=== PATIENT | male | born 1995 | race African-American/Black ===

== ENCOUNTER 2020-12-25 22:53 | Emergency (ER) | payer MEDICAID ==
[~2020-12-25] VITALS: Ht 177.8 cm; Wt 73.0 kg
[~2020-12-25 22:53] MED LIST: ASPI-1497 MT; KEPP500 MT; ONDA4TAB5 PO; TOPUD PO
[2020-12-26] MEDS ORDERED: IOHEXOL-350 100 ML BOTTLE ONE (00:43)
[2020-12-26 00:46] LABS: BASOPHILS % 0.3 % (0.0-2.0); EOSINOPHILS % 3.7 % (0.0-5.0); HEMATOCRIT. 32.1 % (42.0-52.0); HEMOGLOBIN. 10.4 g/dL (14.0-18.0); LYMPHOCYTES % 9.5 % (20.0-50.0); MEAN CORPUSCULAR VOLUME 80.1 fL (80.0-94.0); MEAN PLATELET VOLUME 7.4 fl (7.4-10.4); NEUTROPHILS % 81.5 % (40.0-76.0); PLATELET 209 x1000/uL (130-400)
[2020-12-26 00:49] LABS: CHLORIDE 111 mEq/L (98-107)
[2020-12-26 01:15] VITALS: BP 140/92
[2020-12-26 01:38] LABS: PARTIAL THROMBOPLASTIN TIME 29.9 sec (23.4-31.0); PROTHROMBIN TIME 10.6 sec (9.6-11.0)
[2021-01-22] MEDS ORDERED: HYDR-4001 MT (13:36)
[2021-01-22] MEDS ORDERED: KEPP500 MT (13:36)
== END 2020-12-26 02:12 | disposition home or self-care (01) ==
LOC: ER 22:53
DX: R91.1 Solitary pulmonary nodule (principal); Z85.118 Personal history of other malignant neoplasm of bronchus and lung; Z86.59 Personal history of other mental and behavioral disorders
CPT/HCPCS: 36415; 71045; 71275; 80053; 83880; 84484; 85025; 85610; 85730; 93005; 99285; Q9967

== ENCOUNTER 2021-01-12 11:35 | Inpatient (IN) | payer MEDICAID ==
[~2021-01-12] VITALS: Ht 175.3 cm; Wt 74.9 kg
[2021-01-12] MEDS ORDERED: MORPHINE SULFATE 4 MG/ML CPJ (NOT FOR IM USE) IV STA (12:12)
[2021-01-12 12:45] LABS: BASOPHILS % 0.7 % (0.0-2.0); EOSINOPHILS % 1.7 % (0.0-5.0); HEMATOCRIT. 38.7 % (42.0-52.0); HEMOGLOBIN. 12.6 g/dL (14.0-18.0); LYMPHOCYTES % 11.4 % (20.0-50.0); MEAN CORPUSCULAR HEMOGLOBIN 25.8 pg (28.0-32.0); MEAN CORPUSCULAR VOLUME 79.1 fL (80.0-94.0); MEAN PLATELET VOLUME 7.7 fl (7.4-10.4); MONOCYTES % 5.7 % (2.0-8.0); NEUTROPHILS % 80.5 % (40.0-76.0); PLATELET 262 x1000/uL (130-400); RED BLOOD CELL COUNT 4.89 mill/uL (4.7-6.1); RED CELL DISTRIBUTION WIDTH 13.7 % (11.6-14.6)
[2021-01-12 13:00] LABS: CHLORIDE 108 mEq/L (98-107)
[2021-01-12 13:30] LABS: PROTHROMBIN TIME 10.9 sec (9.6-11.0)
[2021-01-12] MEDS ORDERED: LEVETIRACETAM 500MG PREMIX 100 ML IV ONE (14:45)
[2021-01-12 21:00] VITALS: BP 144/91
[2021-01-12] MEDS ORDERED: HYDR-4350 PO (22:35)
[2021-01-12] MEDS ORDERED: BACL-141 PO (22:36)
[2021-01-12 22:39] VITALS: BP 144/91
[2021-01-12] MEDS: DEXT 5%/0.45% NACL 1000ML 1,000 ML IV SCH (23:40)
[2021-01-12] MEDS: ONDANSETRON HCL 4MG/2ML INJ IV PRN (23:41)
[2021-01-12] MEDS: MORPHINE SULFATE 2 MG/ML CPJ (NOT FOR IM USE) IV PRN (23:42)
[2021-01-13] VITALS: BP 152/91
[2021-01-13 01:46] LABS: CLARITY URINE CLEAR (CLEAR); COLOR URINE YELLOW (YELLOW); KETONES URINE TRACE (NEGATIVE); LEUKOCYTE ESTERASE URINE NEGATIVE (NEGATIVE); NITRITE URINE NEGATIVE (NEGATIVE); OCCULT BLOOD URINE TRACE (NEGATIVE); PROTEIN URINE 2+ (NEGATIVE); SPECIFIC GRAVITY URINE 1.017 (1.005-1.030); UROBILINOGEN URINE 0.2 E.U./dL (0.2-1.0)
[2021-01-13 04:00] VITALS: BP 152/99
[2021-01-13] MEDS: ONDANSETRON HCL 4MG/2ML INJ IV PRN ×2 (06:05→12:00)
[2021-01-13] MEDS: MORPHINE SULFATE 2 MG/ML CPJ (NOT FOR IM USE) IV PRN ×4 (06:13→16:57)
[2021-01-13 06:55] LABS: BASOPHILS % 0.4 % (0.0-2.0); EOSINOPHILS % 1.7 % (0.0-5.0); HEMATOCRIT. 39.6 % (42.0-52.0); LYMPHOCYTES % 10.4 % (20.0-50.0); MEAN CORPUSCULAR VOLUME 79.1 fL (80.0-94.0); MEAN PLATELET VOLUME 7.7 fl (7.4-10.4); MONOCYTES % 7.9 % (2.0-8.0); NEUTROPHILS % 79.6 % (40.0-76.0); PLATELET 268 x1000/uL (130-400); RED CELL DISTRIBUTION WIDTH 13.7 % (11.6-14.6)
[2021-01-13] MEDS: DEXT 5%/0.45% NACL 1000ML 1,000 ML IV SCH (08:12)
[2021-01-13 08:18] VITALS: BP 136/97
[2021-01-13] MEDS ORDERED: LEVETIRACETAM 500MG/5ML CUP PO SCH (09:00)
[2021-01-13 11:54] VITALS: BP 141/97
[2021-01-13 16:00] VITALS: BP 151/109
[2021-01-13 17:35] VITALS: BP 145/90
[2021-01-22] MEDS ORDERED: KEPP500 MT (13:36)
[2021-01-22] MEDS ORDERED: HYDR-4001 MT (13:36)
== END 2021-01-13 17:57 | disposition home or self-care (01) | DRG 343 ==
LOC: ER 11:35 → 6WST 16:24 → ENRESERV 20:14
PROVIDERS: ADMIT Internal Medicine; ATTEND Internal Medicine
DX: C79.51 Secondary malignant neoplasm of bone (principal); L98.8 Other specified disorders of the skin and subcutaneous tissue; Z92.21 Personal history of antineoplastic chemotherapy; Z79.82 Long term (current) use of aspirin; Z79.899 Other long term (current) drug therapy; Z79.1 Long term (current) use of non-steroidal anti-inflammatories (NSAID); Z85.818 Personal history of malignant neoplasm of other sites of lip, oral cavity, and pharynx; Z85.118 Personal history of other malignant neoplasm of bronchus and lung
CPT/HCPCS: 36415; 70551; 71045; 72128; 72131; 72141; 72146; 72148; 80048; 80053; 81003; 85025; 99285; J1953; J2270; J2405

== ENCOUNTER 2021-02-11 16:51 | Emergency (ER) | payer MEDICAID ==
[~2021-02-11] VITALS: Ht 172.7 cm; Wt 69.0 kg
[~2021-02-11 16:51] MED LIST changes: -ASPI-1497 MT; +BACL-141 PO; +HYDR-4001 MT; +HYDR-4350 PO
[2021-02-11] MEDS ORDERED: MORPHINE SULFATE 4 MG/ML CPJ (NOT FOR IM USE) IV ONE (17:30)
[2021-02-11] MEDS ORDERED: ONDANSETRON HCL 4MG/2ML INJ IV ONE ×3 (17:30→23:45)
[2021-02-11] MEDS ORDERED: SODIUM CHLORIDE 0.9% 1,000 ML IV ONE ×2 (17:45→19:00)
[2021-02-11] MEDS ORDERED: FENTANYL CITRATE/PF 50MCG/ML 2ML VIAL IV ONE ×3 (17:45→22:15)
[2021-02-11 18:26] LABS: HEMATOCRIT. 29.1 % (42.0-52.0); HEMOGLOBIN. 9.6 g/dL (14.0-18.0); MEAN CORPUSCULAR HEMOGLOBIN 25.5 pg (28.0-32.0); MEAN CORPUSCULAR VOLUME 77.5 fL (80.0-94.0); MEAN PLATELET VOLUME 7.4 fl (7.4-10.4); PLATELET 344 x1000/uL (130-400); RED BLOOD CELL COUNT 3.76 mill/uL (4.7-6.1); RED CELL DISTRIBUTION WIDTH 13.8 % (11.6-14.6)
[2021-02-11 18:33] LABS: CHLORIDE 106 mEq/L (98-107)
[2021-02-11] MEDS ORDERED: KETAMINE HCL 50 MG/ML 10ML IV ONE (18:45)
[2021-02-11] MEDS ORDERED: KETOROLAC 15MG/ML VIAL IV ONE (18:45)
[2021-02-11] MEDS ORDERED: DEXAMETHASONE 4MG/ML 1ML VIAL IV ONE (19:00)
[2021-02-11 19:22] LABS: PLATELET ESTIMATE NORMAL
[2021-02-12 01:50] VITALS: BP 148/88
== END 2021-02-12 05:43 | disposition short-term general hospital (02) ==
LOC: ER 16:51 → CANBEDREQ 02-12 05:45
DX: C11.9 Malignant neoplasm of nasopharynx, unspecified (principal); C79.51 Secondary malignant neoplasm of bone; I95.9 Hypotension, unspecified; R11.0 Nausea; G40.909 Epilepsy, unspecified, not intractable, without status epilepticus; Z92.21 Personal history of antineoplastic chemotherapy; Z92.3 Personal history of irradiation
CPT/HCPCS: 36415; 72128; 72131; 80053; 83605; 84145; 85025; 93005; 96361; 96374; 96375; 96376; 99285; J1100; J1885; J2405; J3010; J3490; J7030

== ENCOUNTER 2021-11-05 17:50 | Inpatient (IN) | payer MEDICAID ==
[~2021-11-05] VITALS: Ht 172.7 cm; Wt 70.3 kg
[2021-11-05] MEDS ORDERED: PREGABALIN 75MG CAPSULE PO STA (21:04)
[2021-11-05] MEDS ORDERED: SODIUM CHLORIDE 0.9% 1,000 ML IV ONE ×2 (21:15→23:15)
[2021-11-05] MEDS ORDERED: MORPHINE SULFATE 4 MG/ML CPJ (NOT FOR IM USE) IV ONE (21:15)
[2021-11-05 22:20] LABS: BASOPHILS % 0.1 % (0.0-2.0); EOSINOPHILS % 3.6 % (0.0-5.0); LYMPHOCYTES % 10.1 % (20.0-50.0); MEAN CORPUSCULAR HEMOGLOBIN 33.2 pg (28.0-32.0); MEAN CORPUSCULAR VOLUME 93.2 fL (80.0-94.0); MEAN PLATELET VOLUME 6.5 fl (7.4-10.4); NEUTROPHILS % 79.2 % (40.0-76.0); PLATELET 145 x1000/uL (130-400); RED CELL DISTRIBUTION WIDTH 15.5 % (11.6-14.6)
[2021-11-05 22:26] LABS: CHLORIDE 111 mEq/L (98-107)
[2021-11-05] MEDS ORDERED: GABAPENTIN 300MG CAPSULE PO STA (23:11)
[2021-11-06] MEDS ORDERED: ONDANSETRON HCL 4MG/2ML INJ IV PRN (09:45)
[2021-11-06] MEDS ORDERED: LORAZEPAM 0.5MG TABLET PO PRN (09:45)
[2021-11-06] MEDS ORDERED: NA PHOS,M-B/NA PHOS,DI-BA ENEMA 118ML PR PRN (09:45)
[2021-11-06] MEDS ORDERED: GUAIFENESIN 200MG/10ML SUGAR FREE UDC PO PRN (09:45)
[2021-11-06] MEDS ORDERED: DIPHENHYDRAMINE 50MG/ML VIAL IV PRN (09:45)
[2021-11-06] MEDS ORDERED: IPRATROPIUM/ALBUTEROL 0.5-3(2.5)MG/3ML NEB NEB PRN (09:45)
[2021-11-06] MEDS ORDERED: ACETAMINOPHEN 650MG SUPP PR PRN (09:45)
[2021-11-06] MEDS ORDERED: DOCUSATE SODIUM 100MG CAPSULE PO PRN (09:45)
[2021-11-06] MEDS ORDERED: MAGNESIUM/ALUMINUM HYDROXIDE/SIMETHICONE 30ML UDC PO PRN (09:45)
[2021-11-06] MEDS ORDERED: CLONIDINE 0.1MG TABLET PO PRN (09:45)
[2021-11-06 11:50] VITALS: BP 141/95
[2021-11-06] MEDS ORDERED: GABAPENTIN 100MG CAPSULE PO SCH (14:00)
[2021-11-06] MEDS ORDERED: PREGABALIN 25MG CAPSULE PO NR (14:00)
[2021-11-06 15:05] VITALS: BP 139/97
[2021-11-06] MEDS ORDERED: FENT-70 TP (15:18)
[2021-11-06] MEDS: GABAPENTIN 300MG CAPSULE PO SCH ×2 (15:31→21:39)
[2021-11-06 16:00] VITALS: BP 100/75
[2021-11-06 17:38] LABS: INR 1.1; PARTIAL THROMBOPLASTIN TIME 24.5 sec (23.4-31.0); PROTHROMBIN TIME 12.2 sec (9.6-11.0)
[2021-11-06 20:00] VITALS: BP 145/89
[2021-11-06] MEDS: LEVETIRACETAM 500MG TABLET PO SCH (21:37)
[2021-11-06] MEDS: HEPARIN 5000 UNITS/ML VIAL SUBCUT SCH (21:38)
[2021-11-06] MEDS: FAMOTIDINE 20MG TABLET PO SCH (21:38)
[2021-11-06] MEDS: PREGABALIN 25MG CAPSULE PO SCH (21:39)
[2021-11-06] MEDS: HYDROCODONE/ACETAMINOPHEN 5/325MG TABLET PO PRN (21:39)
[2021-11-06] MEDS ORDERED: NALOXONE HCL 0.4MG/ML VIAL IV PRN (22:45)
[2021-11-06 23:42] LABS: CLARITY URINE CLEAR (CLEAR); COLOR URINE YELLOW (YELLOW); KETONES URINE NEGATIVE (NEGATIVE); LEUKOCYTE ESTERASE URINE NEGATIVE (NEGATIVE); NITRITE URINE NEGATIVE (NEGATIVE); OCCULT BLOOD URINE NEGATIVE (NEGATIVE); PH URINE 5.5 (4.5-8.0); PROTEIN URINE NEGATIVE (NEGATIVE); UROBILINOGEN URINE 0.2 E.U./dL (0.2-1.0)
[2021-11-07] VITALS: BP 103/59
[2021-11-07 04:00] VITALS: BP 107/55
[2021-11-07] MEDS: GABAPENTIN 300MG CAPSULE PO SCH ×3 (05:21→22:01)
[2021-11-07 07:06] LABS: CHLORIDE 111 mEq/L (98-107)
[2021-11-07 08:00] VITALS: BP 126/96
[2021-11-07 08:03] LABS: BASOPHILS % 0.5 % (0.0-2.0); HEMATOCRIT. 23.9 % (42.0-52.0); LYMPHOCYTES % 11.5 % (20.0-50.0); MEAN CORPUSCULAR HEMOGLOBIN 32.5 pg (28.0-32.0); MEAN CORPUSCULAR VOLUME 96.8 fL (80.0-94.0); MEAN PLATELET VOLUME 6.1 fl (7.4-10.4); MONOCYTES % 9.3 % (2.0-8.0); NEUTROPHILS % 73.7 % (40.0-76.0); PLATELET 96 x1000/uL (130-400); RED BLOOD CELL COUNT 2.47 mill/uL (4.7-6.1); RED CELL DISTRIBUTION WIDTH 16.4 % (11.6-14.6)
[2021-11-07] MEDS: PREGABALIN 25MG CAPSULE PO SCH ×2 (09:35→22:02)
[2021-11-07] MEDS: LEVETIRACETAM 500MG TABLET PO SCH ×2 (09:35→22:01)
[2021-11-07] MEDS: HEPARIN 5000 UNITS/ML VIAL SUBCUT SCH ×2 (09:38→22:01)
[2021-11-07] MEDS: MORPHINE SULFATE 2 MG/ML CPJ (NOT FOR IM USE) IV PRN (10:53)
[2021-11-07 12:00] VITALS: BP 118/70
[2021-11-07 16:00] VITALS: BP 121/69
[2021-11-07] MEDS: LEVOTHYROXINE SODIUM 50MCG TABLET PO SCH (17:48)
[2021-11-07] MEDS ORDERED: MAGNESIUM 2 G PREMIX 50 ML IV NR (18:00)
[2021-11-07] MEDS: HYDROCODONE/ACETAMINOPHEN 5/325MG TABLET PO PRN ×2 (18:05→22:20)
[2021-11-07 20:00] VITALS: BP 103/61
[2021-11-07] MEDS: FAMOTIDINE 20MG TABLET PO SCH (22:01)
[2021-11-08] VITALS: BP 120/78
[2021-11-08 04:00] VITALS: BP 101/55
[2021-11-08] MEDS: GABAPENTIN 300MG CAPSULE PO SCH ×3 (06:53→21:32)
[2021-11-08] MEDS: LEVOTHYROXINE SODIUM 50MCG TABLET PO SCH (06:53)
[2021-11-08 07:34] LABS: BASOPHILS % 0.4 % (0.0-2.0); EOSINOPHILS % 5.2 % (0.0-5.0); HEMATOCRIT. 24.8 % (42.0-52.0); HEMOGLOBIN. 8.7 g/dL (14.0-18.0); LYMPHOCYTES % 13.3 % (20.0-50.0); MEAN CORPUSCULAR HEMOGLOBIN 33.5 pg (28.0-32.0); MEAN CORPUSCULAR VOLUME 95.1 fL (80.0-94.0); MEAN PLATELET VOLUME 6.8 fl (7.4-10.4); MONOCYTES % 9.1 % (2.0-8.0); PLATELET 95 x1000/uL (130-400); RED CELL DISTRIBUTION WIDTH 16.5 % (11.6-14.6)
[2021-11-08 08:00] VITALS: BP 134/47
[2021-11-08 08:07] LABS: T4 FREE 0.89 ng/dL (0.76-1.46)
[2021-11-08] MEDS: HEPARIN 5000 UNITS/ML VIAL SUBCUT SCH ×2 (09:00→21:32)
[2021-11-08 09:03] LABS: VITAMIN B12 SERUM 580 pg/mL (211-911)
[2021-11-08] MEDS: LEVETIRACETAM 500MG TABLET PO SCH ×2 (09:09→21:32)
[2021-11-08] MEDS: PREGABALIN 25MG CAPSULE PO SCH ×2 (09:09→21:32)
[2021-11-08] MEDS: MORPHINE SULFATE 2 MG/ML CPJ (NOT FOR IM USE) IV PRN (09:12)
[2021-11-08 12:00] VITALS: BP 122/80
[2021-11-08] MEDS: HYDROCODONE/ACETAMINOPHEN 5/325MG TABLET PO PRN ×2 (13:30→21:32)
[2021-11-08 16:00] VITALS: BP 110/70
[2021-11-08 20:00] VITALS: BP 136/79
[2021-11-08] MEDS: FAMOTIDINE 20MG TABLET PO SCH (21:32)
[2021-11-09] VITALS (33 sets, daily range): BP systolic 99–156; BP diastolic 50–94
[2021-11-09] MEDS: GABAPENTIN 300MG CAPSULE PO SCH ×3 (05:37→21:21)
[2021-11-09 06:48] LABS: HEMATOCRIT 27.8 % (42.0-52.0); HEMOGLOBIN 9.3 g/dL (14.0-18.0); MEAN CORPUSCULAR HEMOGLOBIN 31.9 pg (28.0-32.0); MEAN CORPUSCULAR VOLUME 95.4 fL (80.0-94.0); PLATELET 94 x1000/uL (130-400); RED BLOOD CELL COUNT 2.91 mill/uL (4.7-6.1); RED CELL DISTRIBUTION WIDTH 17.5 % (11.6-14.6)
[2021-11-09] MEDS: LEVOTHYROXINE SODIUM 50MCG TABLET PO SCH (06:48)
[2021-11-09] MEDS: HEPARIN 5000 UNITS/ML VIAL SUBCUT SCH (09:00)
[2021-11-09] MEDS: PREGABALIN 25MG CAPSULE PO SCH ×2 (09:00→20:08)
[2021-11-09] MEDS: LEVETIRACETAM 500MG TABLET PO SCH ×2 (09:00→20:07)
[2021-11-09] MEDS ORDERED: SKIN ADHESIVE 0.7 GM EA TOP ONE (11:56)
[2021-11-09] MEDS ORDERED: BUPIVACAINE HCL/PF 0.5% (5MG/ML) 10ML ONE (11:57)
[2021-11-09] MEDS ORDERED: BUPIVACAINE HCL 0.5% (5MG/ML) 50ML ONE (13:50)
[2021-11-09] MEDS ORDERED: LIDOCAINE HCL/EPINEPHRINE 1%-EPI 1:100,000 20 ML VIAL ONE (13:52)
[2021-11-09] MEDS ORDERED: BUPIVACAINE HCL/PF 0.25% (2.5MG/ML) 10ML ONE (13:52)
[2021-11-09] MEDS ORDERED: MORPHINE SULFATE/PF 1MG/ML 10ML AMP ONE (13:52)
[2021-11-09] MEDS ORDERED: ROCURONIUM BROMIDE 10MG/ML VIAL 5ML IV ONE (14:03)
[2021-11-09] MEDS ORDERED: DEXAMETHASONE 4MG/ML 1ML VIAL ONE (14:11)
[2021-11-09] MEDS ORDERED: VASOPRESSIN 20 UNIT/ML 1ML ONE (14:12)
[2021-11-09] MEDS ORDERED: CEFAZOLIN SODIUM 1000MG/VIAL ONE (14:12)
[2021-11-09] MEDS: METOPROLOL TARTRATE 5MG/5ML VIAL IV PRN (15:43)
[2021-11-09] MEDS: CEFTRIAXONE 1,000 MG in DEXTROSE 5% WATER 50 ML IV SCH (17:19)
[2021-11-09] MEDS ORDERED: MAGNESIUM 2 G PREMIX 50 ML IV NR (17:30)
[2021-11-09] MEDS: FAMOTIDINE 20MG TABLET PO SCH (20:07)
[2021-11-09] MEDS: MORPHINE SULFATE 2 MG/ML CPJ (NOT FOR IM USE) IV PRN (20:14)
[2021-11-10] VITALS (73 sets, daily range): BP systolic 81–167; BP diastolic 43–107
[2021-11-10] MEDS: GABAPENTIN 300MG CAPSULE PO SCH ×3 (05:37→21:03)
[2021-11-10 06:54] LABS: HEMATOCRIT. 33.8 % (42.0-52.0); HEMOGLOBIN. 11.1 g/dL (14.0-18.0); MEAN CORPUSCULAR HEMOGLOBIN 32.4 pg (28.0-32.0); MEAN CORPUSCULAR VOLUME 98.5 fL (80.0-94.0); MEAN PLATELET VOLUME 6.8 fl (7.4-10.4); PLATELET 105 x1000/uL (130-400); RED BLOOD CELL COUNT 3.43 mill/uL (4.7-6.1); RED CELL DISTRIBUTION WIDTH 17.3 % (11.6-14.6)
[2021-11-10] MEDS: PREGABALIN 25MG CAPSULE PO SCH ×2 (08:58→21:03)
[2021-11-10] MEDS: LEVETIRACETAM 500MG TABLET PO SCH ×2 (08:58→21:03)
[2021-11-10] MEDS: MAGNESIUM OXIDE 400MG TABLET PO SCH (08:58)
[2021-11-10] MEDS: LEVOTHYROXINE SODIUM 50MCG TABLET PO SCH (08:58)
[2021-11-10] MEDS ORDERED: LIDOCAINE HCL/PF 1% 2ML VIAL ONE (09:00)
[2021-11-10] MEDS: MORPHINE SULFATE 2 MG/ML CPJ (NOT FOR IM USE) IV PRN (11:55)
[2021-11-10 12:31] LABS: BG BASE EXCESS -4.1 mmol/L (-2.0-2.0); BG CARBOXYHEMOGLOBIN 0.4 % (0.5-1.5); BG DEOXYHEMOGLOBIN 2.7 % (0.0-5.0); BG HCO3 ACT 20.1 mmol/L (22.0-26.0); BG METHEMOGLOBIN 0.3 % (0.0-1.5); BG OXYGEN SATURATION 97.3 % (92.0-98.5); BG OXYHEMOGLOBIN 96.6 % (94.0-97.0); BG PCO2 34.2 mmHg (35.0-45.0); BG PH 7.387 (7.350-7.450); BG PO2 101.7 mmHg (75.0-100.0); BG SAMPLE SITE RIGHT RADIAL; BG TOTAL HEMOGLOBIN 12.8 g/dL (12.0-18.0); BG VENT MODE ROOM AIR
[2021-11-10] MEDS ORDERED: SODIUM POLYSTYRENE SULFONATE 15 G/60 ML BOT PO NR (13:00)
[2021-11-10] MEDS: CEFTRIAXONE 1,000 MG in DEXTROSE 5% WATER 50 ML IV SCH (14:13)
[2021-11-10 14:16] LABS: PLATELET ESTIMATE SLIGHTLY DECREASED
[2021-11-10] MEDS: FAMOTIDINE 20MG TABLET PO SCH (21:03)
[2021-11-10] MEDS: METOPROLOL TARTRATE 5MG/5ML VIAL IV PRN (22:45)
[2021-11-11] VITALS (12 sets, daily range): BP systolic 73–142; BP diastolic 39–117
[2021-11-11] MEDS: GABAPENTIN 300MG CAPSULE PO SCH ×3 (05:42→21:10)
[2021-11-11 06:29] LABS: BASOPHILS % 0.2 % (0.0-2.0); EOSINOPHILS % 0.8 % (0.0-5.0); HEMATOCRIT. 26.8 % (42.0-52.0); HEMOGLOBIN. 9.2 g/dL (14.0-18.0); LYMPHOCYTES % 7.2 % (20.0-50.0); MEAN CORPUSCULAR HEMOGLOBIN 32.7 pg (28.0-32.0); MEAN CORPUSCULAR VOLUME 95.2 fL (80.0-94.0); MEAN PLATELET VOLUME 7.3 fl (7.4-10.4); MONOCYTES % 12.1 % (2.0-8.0); NEUTROPHILS % 79.7 % (40.0-76.0); PLATELET 99 x1000/uL (130-400); RED BLOOD CELL COUNT 2.82 mill/uL (4.7-6.1); RED CELL DISTRIBUTION WIDTH 17.3 % (11.6-14.6)
[2021-11-11] MEDS: MAGNESIUM OXIDE 400MG TABLET PO SCH (08:06)
[2021-11-11] MEDS: LEVETIRACETAM 500MG TABLET PO SCH ×2 (08:06→21:10)
[2021-11-11] MEDS: LEVOTHYROXINE SODIUM 50MCG TABLET PO SCH (08:06)
[2021-11-11] MEDS: MORPHINE SULFATE 2 MG/ML CPJ (NOT FOR IM USE) IV PRN (08:08)
[2021-11-11] MEDS ORDERED: SODIUM CHLORIDE 0.9% 500 ML IV NR (09:45)
[2021-11-11] MEDS: PREGABALIN 25MG CAPSULE PO SCH ×2 (10:45→21:10)
[2021-11-11] MEDS ORDERED: SILVER SULFADIAZINE 1% CREAM 25GM TOP NR (13:00)
[2021-11-11] MEDS: SODIUM CHLORIDE 0.9% 1,000 ML IV SCH (14:43)
[2021-11-11] MEDS: CEFTRIAXONE 1,000 MG in DEXTROSE 5% WATER 50 ML IV SCH (14:43)
[2021-11-11] MEDS: FAMOTIDINE 20MG TABLET PO SCH (21:10)
[2021-11-11] MEDS: HYDROCODONE/ACETAMINOPHEN 5/325MG TABLET PO PRN (21:10)
[2021-11-12] VITALS (8 sets, daily range): BP systolic 76–130; BP diastolic 39–74
[2021-11-12] MEDS: SODIUM CHLORIDE 0.9% 1,000 ML IV SCH ×2 (01:40→13:50)
[2021-11-12] MEDS: HYDROCODONE/ACETAMINOPHEN 5/325MG TABLET PO PRN ×2 (03:43→20:55)
[2021-11-12] MEDS: GABAPENTIN 300MG CAPSULE PO SCH ×3 (05:03→21:23)
[2021-11-12 06:13] LABS: BASOPHILS % 0.3 % (0.0-2.0); EOSINOPHILS % 3.1 % (0.0-5.0); HEMOGLOBIN. 8.3 g/dL (14.0-18.0); LYMPHOCYTES % 12.8 % (20.0-50.0); MEAN CORPUSCULAR HEMOGLOBIN 33.2 pg (28.0-32.0); MEAN CORPUSCULAR VOLUME 96.4 fL (80.0-94.0); MEAN PLATELET VOLUME 7.3 fl (7.4-10.4); NEUTROPHILS % 72.8 % (40.0-76.0); PLATELET 85 x1000/uL (130-400); RED BLOOD CELL COUNT 2.49 mill/uL (4.7-6.1); RED CELL DISTRIBUTION WIDTH 17.3 % (11.6-14.6)
[2021-11-12 06:58] LABS: PHOSPHORUS 3.5 mg/dL (2.5-4.9)
[2021-11-12] MEDS: MAGNESIUM OXIDE 400MG TABLET PO SCH (08:54)
[2021-11-12] MEDS: LEVETIRACETAM 500MG TABLET PO SCH ×2 (08:55→20:48)
[2021-11-12] MEDS: LEVOTHYROXINE SODIUM 50MCG TABLET PO SCH (08:55)
[2021-11-12] MEDS: PREGABALIN 25MG CAPSULE PO SCH ×2 (08:56→20:48)
[2021-11-12] MEDS ORDERED: HYDR-4001 MT (13:21)
[2021-11-12] MEDS ORDERED: SILV50CR31 TP (13:21)
[2021-11-12] MEDS: CEFTRIAXONE 1,000 MG in DEXTROSE 5% WATER 50 ML IV SCH (13:50)
[2021-11-12] MEDS: SILVER SULFADIAZINE 1% CREAM 50GM TOP SCH (13:51)
[2021-11-12 15:37] LABS: HEMOGLOBIN 8.7 g/dL (14.0-18.0)
[2021-11-12] MEDS: FAMOTIDINE 20MG TABLET PO SCH (20:48)
[2021-11-13] VITALS (8 sets, daily range): BP systolic 107–133; BP diastolic 28–81
[2021-11-13] MEDS: HYDROCODONE/ACETAMINOPHEN 5/325MG TABLET PO PRN ×2 (01:50→21:32)
[2021-11-13] MEDS: SODIUM CHLORIDE 0.9% 1,000 ML IV SCH ×2 (04:30→17:47)
[2021-11-13 06:05] LABS: BASOPHILS % 0.6 % (0.0-2.0); EOSINOPHILS % 4.6 % (0.0-5.0); HEMOGLOBIN. 8.3 g/dL (14.0-18.0); LYMPHOCYTES % 8.4 % (20.0-50.0); MEAN CORPUSCULAR HEMOGLOBIN 32.1 pg (28.0-32.0); MEAN CORPUSCULAR VOLUME 97.1 fL (80.0-94.0); MEAN PLATELET VOLUME 7.4 fl (7.4-10.4); MONOCYTES % 9.1 % (2.0-8.0); NEUTROPHILS % 77.3 % (40.0-76.0); PLATELET 79 x1000/uL (130-400); RED BLOOD CELL COUNT 2.58 mill/uL (4.7-6.1); RED CELL DISTRIBUTION WIDTH 17.1 % (11.6-14.6)
[2021-11-13 06:14] LABS: PHOSPHORUS 3.2 mg/dL (2.5-4.9)
[2021-11-13] MEDS: GABAPENTIN 300MG CAPSULE PO SCH ×3 (06:31→21:31)
[2021-11-13] MEDS: LEVETIRACETAM 500MG TABLET PO SCH ×2 (09:50→21:31)
[2021-11-13] MEDS: PREGABALIN 25MG CAPSULE PO SCH ×2 (09:50→21:31)
[2021-11-13] MEDS: LEVOTHYROXINE SODIUM 50MCG TABLET PO SCH (09:50)
[2021-11-13] MEDS: MAGNESIUM OXIDE 400MG TABLET PO SCH (13:54)
[2021-11-13] MEDS: CEFTRIAXONE 1,000 MG in DEXTROSE 5% WATER 50 ML IV SCH (13:55)
[2021-11-13] MEDS: SILVER SULFADIAZINE 1% CREAM 50GM TOP SCH (13:56)
[2021-11-13] MEDS ORDERED: LORAZEPAM 2MG/ML CPJ IV PRN (17:15)
[2021-11-13] MEDS: FAMOTIDINE 20MG TABLET PO SCH (21:31)
[2021-11-14] VITALS (8 sets, daily range): BP systolic 99–134; BP diastolic 59–76
[2021-11-14] MEDS: GABAPENTIN 300MG CAPSULE PO SCH ×3 (06:12→21:14)
[2021-11-14] MEDS: SODIUM CHLORIDE 0.9% 1,000 ML IV SCH (06:19)
[2021-11-14 07:10] LABS: BASOPHILS % 0.4 % (0.0-2.0); EOSINOPHILS % 4.8 % (0.0-5.0); HEMATOCRIT. 26.1 % (42.0-52.0); HEMOGLOBIN. 8.8 g/dL (14.0-18.0); LYMPHOCYTES % 10.7 % (20.0-50.0); MEAN CORPUSCULAR HEMOGLOBIN 32.3 pg (28.0-32.0); MEAN CORPUSCULAR VOLUME 95.4 fL (80.0-94.0); MEAN PLATELET VOLUME 7.4 fl (7.4-10.4); MONOCYTES % 10.4 % (2.0-8.0); NEUTROPHILS % 73.7 % (40.0-76.0); PLATELET 90 x1000/uL (130-400); RED BLOOD CELL COUNT 2.73 mill/uL (4.7-6.1); RED CELL DISTRIBUTION WIDTH 16.4 % (11.6-14.6)
[2021-11-14 07:13] LABS: PHOSPHORUS 3.6 mg/dL (2.5-4.9)
[2021-11-14] MEDS: LEVETIRACETAM 500MG TABLET PO SCH ×2 (09:38→21:14)
[2021-11-14] MEDS: MAGNESIUM OXIDE 400MG TABLET PO SCH (09:38)
[2021-11-14] MEDS: LEVOTHYROXINE SODIUM 50MCG TABLET PO SCH (09:38)
[2021-11-14] MEDS: SILVER SULFADIAZINE 1% CREAM 50GM TOP SCH (09:39)
[2021-11-14] MEDS: PREGABALIN 25MG CAPSULE PO SCH ×2 (09:39→21:14)
[2021-11-14] MEDS: FAMOTIDINE 20MG TABLET PO SCH (21:14)
[2021-11-14] MEDS: ACETAMINOPHEN 325MG TABLET PO PRN (21:15)
[2021-11-14] MEDS: HYDROCODONE/ACETAMINOPHEN 5/325MG TABLET PO PRN (22:01)
[2021-11-15] VITALS: BP 108/82
[2021-11-15 04:00] VITALS: BP 105/60
[2021-11-15] MEDS: GABAPENTIN 300MG CAPSULE PO SCH ×3 (05:44→21:01)
[2021-11-15 06:12] LABS: BASOPHILS % 0.6 % (0.0-2.0); EOSINOPHILS % 7.8 % (0.0-5.0); HEMATOCRIT. 25.6 % (42.0-52.0); HEMOGLOBIN. 8.8 g/dL (14.0-18.0); LYMPHOCYTES % 13.5 % (20.0-50.0); MEAN CORPUSCULAR HEMOGLOBIN 32.8 pg (28.0-32.0); MEAN PLATELET VOLUME 7.4 fl (7.4-10.4); MONOCYTES % 13.3 % (2.0-8.0); NEUTROPHILS % 64.8 % (40.0-76.0); PLATELET 85 x1000/uL (130-400); RED BLOOD CELL COUNT 2.69 mill/uL (4.7-6.1); RED CELL DISTRIBUTION WIDTH 16.4 % (11.6-14.6)
[2021-11-15 06:22] LABS: PHOSPHORUS 4.4 mg/dL (2.5-4.9)
[2021-11-15] MEDS: LEVOTHYROXINE SODIUM 50MCG TABLET PO SCH (07:56)
[2021-11-15 08:00] VITALS: BP 105/59
[2021-11-15] MEDS: MAGNESIUM OXIDE 400MG TABLET PO SCH (08:00)
[2021-11-15] MEDS: PREGABALIN 25MG CAPSULE PO SCH ×2 (08:00→21:01)
[2021-11-15] MEDS: LEVETIRACETAM 500MG TABLET PO SCH ×2 (08:00→21:01)
[2021-11-15] MEDS: SILVER SULFADIAZINE 1% CREAM 50GM TOP SCH (08:02)
[2021-11-15] MEDS: HYDROCODONE/ACETAMINOPHEN 5/325MG TABLET PO PRN (08:07)
[2021-11-15 11:52] VITALS: BP 100/60
[2021-11-15 15:38] VITALS: BP 98/59
[2021-11-15 20:00] VITALS: BP 87/57
[2021-11-15] MEDS: FAMOTIDINE 20MG TABLET PO SCH (21:01)
[2021-11-16] VITALS: BP 112/89
[2021-11-16 04:00] VITALS: BP 91/44
[2021-11-16] MEDS: GABAPENTIN 300MG CAPSULE PO SCH ×3 (05:30→21:30)
[2021-11-16] MEDS: LEVOTHYROXINE SODIUM 50MCG TABLET PO SCH (05:30)
[2021-11-16 07:27] LABS: BASOPHILS % 0.7 % (0.0-2.0); EOSINOPHILS % 7.1 % (0.0-5.0); HEMOGLOBIN. 9.6 g/dL (14.0-18.0); LYMPHOCYTES % 18.3 % (20.0-50.0); MEAN CORPUSCULAR HEMOGLOBIN 32.2 pg (28.0-32.0); MEAN CORPUSCULAR VOLUME 94.3 fL (80.0-94.0); MEAN PLATELET VOLUME 7.4 fl (7.4-10.4); MONOCYTES % 9.9 % (2.0-8.0); PLATELET 92 x1000/uL (130-400); RED BLOOD CELL COUNT 2.97 mill/uL (4.7-6.1); RED CELL DISTRIBUTION WIDTH 16.1 % (11.6-14.6)
[2021-11-16 08:00] VITALS: BP 84/53
[2021-11-16 08:36] LABS: PHOSPHORUS 3.8 mg/dL (2.5-4.9)
[2021-11-16] MEDS: SILVER SULFADIAZINE 1% CREAM 50GM TOP SCH (09:22)
[2021-11-16] MEDS: PREGABALIN 25MG CAPSULE PO SCH ×2 (09:22→21:30)
[2021-11-16] MEDS: MAGNESIUM OXIDE 400MG TABLET PO SCH (09:22)
[2021-11-16] MEDS: LEVETIRACETAM 500MG TABLET PO SCH ×2 (09:22→21:30)
[2021-11-16] MEDS: HYDROCODONE/ACETAMINOPHEN 5/325MG TABLET PO PRN (11:25)
[2021-11-16 12:00] VITALS: BP 112/80
[2021-11-16 16:00] VITALS: BP_SYST 110; BP_SYST 116; BP_DIAS 62; BP_DIAS 85
[2021-11-16] MEDS: FAMOTIDINE 20MG TABLET PO SCH (21:30)
[2021-11-17] VITALS: BP 115/71
[2021-11-17 04:00] VITALS: BP_SYST 163; BP_SYST 95; BP_DIAS 54; BP_DIAS 91
[2021-11-17] MEDS: GABAPENTIN 300MG CAPSULE PO SCH ×3 (06:09→21:05)
[2021-11-17 06:26] LABS: PHOSPHORUS 4.3 mg/dL (2.5-4.9)
[2021-11-17 06:50] LABS: BASOPHILS % 0.7 % (0.0-2.0); EOSINOPHILS % 6.6 % (0.0-5.0); HEMATOCRIT. 28.5 % (42.0-52.0); HEMOGLOBIN. 9.8 g/dL (14.0-18.0); MEAN CORPUSCULAR HEMOGLOBIN 32.2 pg (28.0-32.0); MEAN CORPUSCULAR VOLUME 93.8 fL (80.0-94.0); MEAN PLATELET VOLUME 7.7 fl (7.4-10.4); MONOCYTES % 11.1 % (2.0-8.0); NEUTROPHILS % 60.6 % (40.0-76.0); PLATELET 102 x1000/uL (130-400); RED BLOOD CELL COUNT 3.03 mill/uL (4.7-6.1)
[2021-11-17] MEDS: LEVOTHYROXINE SODIUM 50MCG TABLET PO SCH (06:59)
[2021-11-17 08:00] VITALS: BP 90/48
[2021-11-17] MEDS: SILVER SULFADIAZINE 1% CREAM 50GM TOP SCH (09:09)
[2021-11-17] MEDS: PREGABALIN 25MG CAPSULE PO SCH ×2 (09:16→21:05)
[2021-11-17] MEDS: MAGNESIUM OXIDE 400MG TABLET PO SCH (09:16)
[2021-11-17] MEDS: LEVETIRACETAM 500MG TABLET PO SCH ×2 (09:16→21:05)
[2021-11-17 12:00] VITALS: BP 106/56
[2021-11-17 16:00] VITALS: BP 106/56
[2021-11-17 20:00] VITALS: BP 112/55
[2021-11-17] MEDS: FAMOTIDINE 20MG TABLET PO SCH (21:05)
[2021-11-17] MEDS: ACETAMINOPHEN 325MG TABLET PO PRN (21:38)
[2021-11-17] MEDS ORDERED: NALOXONE HCL 0.4MG/ML VIAL IV PRN (22:15)
[2021-11-18] VITALS: BP 102/60
[2021-11-18] MEDS: HYDROCODONE/ACETAMINOPHEN 5/325MG TABLET PO PRN ×3 (01:44→17:03)
[2021-11-18 04:00] VITALS: BP 101/65
[2021-11-18] MEDS: LEVOTHYROXINE SODIUM 50MCG TABLET PO SCH (06:28)
[2021-11-18] MEDS: GABAPENTIN 300MG CAPSULE PO SCH ×3 (06:28→21:11)
[2021-11-18 07:38] LABS: PHOSPHORUS 4.1 mg/dL (2.5-4.9)
[2021-11-18 08:00] VITALS: BP_SYST 109; BP_SYST 122; BP_DIAS 62
[2021-11-18 08:47] LABS: BASOPHILS % 0.7 % (0.0-2.0); EOSINOPHILS % 7.3 % (0.0-5.0); HEMATOCRIT. 30.2 % (42.0-52.0); HEMOGLOBIN. 10.4 g/dL (14.0-18.0); LYMPHOCYTES % 23.9 % (20.0-50.0); MEAN CORPUSCULAR HEMOGLOBIN 32.6 pg (28.0-32.0); MEAN CORPUSCULAR VOLUME 94.5 fL (80.0-94.0); MEAN PLATELET VOLUME 7.9 fl (7.4-10.4); MONOCYTES % 13.9 % (2.0-8.0); NEUTROPHILS % 54.2 % (40.0-76.0); PLATELET 103 x1000/uL (130-400); RED CELL DISTRIBUTION WIDTH 15.9 % (11.6-14.6)
[2021-11-18] MEDS: MAGNESIUM OXIDE 400MG TABLET PO SCH (11:47)
[2021-11-18] MEDS: SILVER SULFADIAZINE 1% CREAM 50GM TOP SCH (11:47)
[2021-11-18] MEDS: LEVETIRACETAM 500MG TABLET PO SCH ×2 (11:47→21:11)
[2021-11-18] MEDS: PREGABALIN 25MG CAPSULE PO SCH ×2 (11:47→21:11)
[2021-11-18 11:59] VITALS: BP 108/64
[2021-11-18 16:00] VITALS: BP 115/56
[2021-11-18 20:00] VITALS: BP 120/68
[2021-11-18] MEDS: FAMOTIDINE 20MG TABLET PO SCH (21:12)
[2021-11-19] VITALS (7 sets, daily range): BP systolic 71–126; BP diastolic 27–78
[2021-11-19] MEDS: LEVOTHYROXINE SODIUM 50MCG TABLET PO SCH (06:30)
[2021-11-19] MEDS: GABAPENTIN 300MG CAPSULE PO SCH ×3 (06:30→21:51)
[2021-11-19] MEDS: SILVER SULFADIAZINE 1% CREAM 50GM TOP SCH (09:00)
[2021-11-19] MEDS: LEVETIRACETAM 500MG TABLET PO SCH ×2 (09:22→21:51)
[2021-11-19] MEDS: PREGABALIN 25MG CAPSULE PO SCH ×2 (09:22→21:55)
[2021-11-19] MEDS: MAGNESIUM OXIDE 400MG TABLET PO SCH (09:22)
[2021-11-19] MEDS: FAMOTIDINE 20MG TABLET PO SCH (21:50)
[2021-11-20] VITALS: BP 99/65
[2021-11-20] MEDS: HYDROCODONE/ACETAMINOPHEN 5/325MG TABLET PO PRN ×2 (00:01→11:21)
[2021-11-20 04:00] VITALS: BP 95/62
[2021-11-20 07:24] LABS: BASOPHILS % 0.8 % (0.0-2.0); EOSINOPHILS % 5.2 % (0.0-5.0); HEMATOCRIT. 27.6 % (42.0-52.0); HEMOGLOBIN. 9.6 g/dL (14.0-18.0); LYMPHOCYTES % 19.5 % (20.0-50.0); MEAN CORPUSCULAR HEMOGLOBIN 32.6 pg (28.0-32.0); MEAN PLATELET VOLUME 7.4 fl (7.4-10.4); MONOCYTES % 10.3 % (2.0-8.0); NEUTROPHILS % 64.2 % (40.0-76.0); PLATELET 109 x1000/uL (130-400); RED BLOOD CELL COUNT 2.94 mill/uL (4.7-6.1)
[2021-11-20] MEDS: LEVOTHYROXINE SODIUM 50MCG TABLET PO SCH (07:24)
[2021-11-20 08:00] VITALS: BP 90/54
[2021-11-20 08:10] LABS: PHOSPHORUS 4.1 mg/dL (2.5-4.9)
[2021-11-20] MEDS: GABAPENTIN 300MG CAPSULE PO SCH ×3 (09:11→22:46)
[2021-11-20] MEDS: LEVETIRACETAM 500MG TABLET PO SCH ×2 (09:11→22:46)
[2021-11-20] MEDS: MAGNESIUM OXIDE 400MG TABLET PO SCH (09:11)
[2021-11-20] MEDS: PREGABALIN 25MG CAPSULE PO SCH ×2 (09:11→22:46)
[2021-11-20] MEDS: SILVER SULFADIAZINE 1% CREAM 50GM TOP SCH (10:02)
[2021-11-20 12:00] VITALS: BP 99/63
[2021-11-20 16:00] VITALS: BP 109/61
[2021-11-20 20:00] VITALS: BP 117/70
[2021-11-20] MEDS: FAMOTIDINE 20MG TABLET PO SCH (22:47)
[2021-11-21] VITALS: BP 110/61
[2021-11-21] MEDS: GABAPENTIN 300MG CAPSULE PO SCH ×3 (06:42→21:24)
[2021-11-21] MEDS: LEVOTHYROXINE SODIUM 50MCG TABLET PO SCH (06:42)
[2021-11-21 08:00] VITALS: BP 95/55
[2021-11-21] MEDS: LEVETIRACETAM 500MG TABLET PO SCH ×2 (09:13→21:24)
[2021-11-21] MEDS: MAGNESIUM OXIDE 400MG TABLET PO SCH (09:13)
[2021-11-21] MEDS: PREGABALIN 25MG CAPSULE PO SCH ×2 (09:13→21:27)
[2021-11-21] MEDS: SILVER SULFADIAZINE 1% CREAM 50GM TOP SCH (09:14)
[2021-11-21 12:00] VITALS: BP 116/68
[2021-11-21 16:00] VITALS: BP 108/70
[2021-11-21 20:00] VITALS: BP 105/71
[2021-11-21] MEDS: FAMOTIDINE 20MG TABLET PO SCH (21:24)
[2021-11-22 04:00] VITALS: BP 95/63
[2021-11-22] MEDS: LEVOTHYROXINE SODIUM 50MCG TABLET PO SCH (06:25)
[2021-11-22] MEDS: GABAPENTIN 300MG CAPSULE PO SCH ×3 (06:25→21:17)
[2021-11-22] MEDS: HYDROCODONE/ACETAMINOPHEN 5/325MG TABLET PO PRN (07:34)
[2021-11-22] MEDS: MAGNESIUM OXIDE 400MG TABLET PO SCH (07:34)
[2021-11-22] MEDS: LEVETIRACETAM 500MG TABLET PO SCH ×2 (07:34→21:17)
[2021-11-22] MEDS: PREGABALIN 25MG CAPSULE PO SCH ×2 (07:35→21:17)
[2021-11-22] MEDS: SILVER SULFADIAZINE 1% CREAM 50GM TOP SCH (07:35)
[2021-11-22 08:00] VITALS: BP 122/77
[2021-11-22 08:12] LABS: BASOPHILS % 0.8 % (0.0-2.0); HEMATOCRIT. 28.8 % (42.0-52.0); HEMOGLOBIN. 9.8 g/dL (14.0-18.0); LYMPHOCYTES % 15.4 % (20.0-50.0); MEAN CORPUSCULAR HEMOGLOBIN 32.4 pg (28.0-32.0); MEAN CORPUSCULAR VOLUME 94.8 fL (80.0-94.0); MEAN PLATELET VOLUME 7.9 fl (7.4-10.4); MONOCYTES % 9.7 % (2.0-8.0); NEUTROPHILS % 70.1 % (40.0-76.0); PLATELET 122 x1000/uL (130-400); RED BLOOD CELL COUNT 3.04 mill/uL (4.7-6.1); RED CELL DISTRIBUTION WIDTH 15.8 % (11.6-14.6)
[2021-11-22 08:52] LABS: PHOSPHORUS 3.6 mg/dL (2.5-4.9)
[2021-11-22 12:00] VITALS: BP 131/74
[2021-11-22 16:00] VITALS: BP 109/69
[2021-11-22 20:00] VITALS: BP 110/71
[2021-11-22] MEDS: FAMOTIDINE 20MG TABLET PO SCH (21:17)
[2021-11-23] VITALS: BP 111/69
[2021-11-23 04:00] VITALS: BP 90/55
[2021-11-23] MEDS: LEVOTHYROXINE SODIUM 50MCG TABLET PO SCH (06:34)
[2021-11-23] MEDS: GABAPENTIN 300MG CAPSULE PO SCH (06:34)
[2021-11-23] MEDS: MAGNESIUM OXIDE 400MG TABLET PO SCH (09:30)
[2021-11-23] MEDS: LEVETIRACETAM 500MG TABLET PO SCH ×2 (09:30→20:44)
[2021-11-23] MEDS: PREGABALIN 25MG CAPSULE PO SCH ×2 (09:31→20:45)
[2021-11-23] MEDS: SILVER SULFADIAZINE 1% CREAM 50GM TOP SCH (09:34)
[2021-11-23] MEDS: GABAPENTIN 100MG CAPSULE PO SCH ×2 (12:31→20:44)
[2021-11-23] MEDS: ACETAMINOPHEN 325MG TABLET PO PRN (15:27)
[2021-11-23 16:00] VITALS: BP 118/60
[2021-11-23] MEDS: HYDROCODONE/ACETAMINOPHEN 5/325MG TABLET PO PRN (18:45)
[2021-11-23 20:00] VITALS: BP 124/74
[2021-11-23] MEDS: FAMOTIDINE 20MG TABLET PO SCH (20:44)
[2021-11-24] VITALS: BP 114/60
[2021-11-24 04:00] VITALS: BP 122/78
[2021-11-24] MEDS: GABAPENTIN 100MG CAPSULE PO SCH ×3 (06:27→22:47)
[2021-11-24] MEDS: LEVOTHYROXINE SODIUM 50MCG TABLET PO SCH (06:27)
[2021-11-24 07:01] LABS: BASOPHILS % 0.7 % (0.0-2.0); EOSINOPHILS % 3.7 % (0.0-5.0); HEMATOCRIT. 28.7 % (42.0-52.0); HEMOGLOBIN. 9.9 g/dL (14.0-18.0); LYMPHOCYTES % 20.5 % (20.0-50.0); MEAN CORPUSCULAR HEMOGLOBIN 31.9 pg (28.0-32.0); MEAN CORPUSCULAR VOLUME 92.8 fL (80.0-94.0); MEAN PLATELET VOLUME 7.5 fl (7.4-10.4); NEUTROPHILS % 62.1 % (40.0-76.0); PLATELET 119 x1000/uL (130-400); RED BLOOD CELL COUNT 3.09 mill/uL (4.7-6.1); RED CELL DISTRIBUTION WIDTH 15.4 % (11.6-14.6)
[2021-11-24 07:10] LABS: PHOSPHORUS 3.8 mg/dL (2.5-4.9)
[2021-11-24 08:01] VITALS: BP 108/62
[2021-11-24] MEDS: PREGABALIN 25MG CAPSULE PO SCH ×2 (08:39→21:00)
[2021-11-24] MEDS: LEVETIRACETAM 500MG TABLET PO SCH ×2 (08:39→22:47)
[2021-11-24] MEDS: MAGNESIUM OXIDE 400MG TABLET PO SCH (08:39)
[2021-11-24] MEDS: SILVER SULFADIAZINE 1% CREAM 50GM TOP SCH (08:40)
[2021-11-24 12:00] VITALS: BP 126/85
[2021-11-24 16:00] VITALS: BP 92/40
[2021-11-24 20:00] VITALS: BP 134/82
[2021-11-24] MEDS: FAMOTIDINE 20MG TABLET PO SCH (22:47)
[2021-11-25] VITALS: BP 102/50
[2021-11-25 04:00] VITALS: BP 86/44
[2021-11-25] MEDS: GABAPENTIN 100MG CAPSULE PO SCH ×2 (06:23→13:15)
[2021-11-25] MEDS: LEVOTHYROXINE SODIUM 50MCG TABLET PO SCH (06:23)
[2021-11-25] MEDS: LEVETIRACETAM 500MG TABLET PO SCH ×2 (08:57→20:37)
[2021-11-25] MEDS: SILVER SULFADIAZINE 1% CREAM 50GM TOP SCH (08:58)
[2021-11-25] MEDS: MAGNESIUM OXIDE 400MG TABLET PO SCH (08:58)
[2021-11-25] MEDS: PREGABALIN 25MG CAPSULE PO SCH ×2 (08:58→20:38)
[2021-11-25 20:00] VITALS: BP 137/85
[2021-11-25] MEDS: FAMOTIDINE 20MG TABLET PO SCH (20:37)
[2021-11-25] MEDS: HYDROCODONE/ACETAMINOPHEN 5/325MG TABLET PO PRN (20:38)
[2021-11-25 20:41] VITALS: BP 137/85
== END 2021-11-25 21:00 | disposition home health service (06) | DRG 951 ==
LOC: ER 17:50 → 6EST 23:17 → ENRESERV 11-06 09:19 → 6WST 11-06 15:58 → CVICU 11-09 15:01 → 5EST 11-11 00:50 → 6EST 11-16 12:35
PROVIDERS: ADMIT Internal Medicine; ATTEND Internal Medicine
PROC: 02BN0ZX Excision of Pericardium, Open Approach, Diagnostic (ICD-10-PCS; principal; 2021-11-09)
PROC: 0W9D00Z Drainage of Pericardial Cavity with Drainage Device, Open Approach (ICD-10-PCS; 2021-11-09)
PROC: 0JBR0ZZ Excision of Left Foot Subcutaneous Tissue and Fascia, Open Approach (ICD-10-PCS; 2021-11-11)
PROC: 0JBQ0ZZ Excision of Right Foot Subcutaneous Tissue and Fascia, Open Approach (ICD-10-PCS; 2021-11-11)
DX: G62.0 Drug-induced polyneuropathy (principal); N17.0 Acute kidney failure with tubular necrosis; E43 Unspecified severe protein-calorie malnutrition; C79.51 Secondary malignant neoplasm of bone; C78.02 Secondary malignant neoplasm of left lung; D69.6 Thrombocytopenia, unspecified; L03.115 Cellulitis of right lower limb; D63.8 Anemia in other chronic diseases classified elsewhere; I31.3 Pericardial effusion (noninflammatory); Z20.822 Contact with and (suspected) exposure to COVID-19; N18.4 Chronic kidney disease, stage 4 (severe); C11.9 Malignant neoplasm of nasopharynx, unspecified; L03.116 Cellulitis of left lower limb; N13.30 Unspecified hydronephrosis; C78.7 Secondary malignant neoplasm of liver and intrahepatic bile duct; G40.909 Epilepsy, unspecified, not intractable, without status epilepticus; G89.29 Other chronic pain; E03.9 Hypothyroidism, unspecified; E83.42 Hypomagnesemia; E87.5 Hyperkalemia; R62.7 Adult failure to thrive; N32.89 Other specified disorders of bladder; R23.8 Other skin changes; T45.1X5A Adverse effect of antineoplastic and immunosuppressive drugs, initial encounter; E86.0 Dehydration; I50.9 Heart failure, unspecified; I95.81 Postprocedural hypotension; L03.032 Cellulitis of left toe; L03.031 Cellulitis of right toe; K59.00 Constipation, unspecified; Z79.899 Other long term (current) drug therapy; Y92.89 Other specified places as the place of occurrence of the external cause; Z92.21 Personal history of antineoplastic chemotherapy; Z82.49 Family history of ischemic heart disease and other diseases of the circulatory system; Z92.3 Personal history of irradiation; Z90.2 Acquired absence of lung [part of]; Z99.2 Dependence on renal dialysis; Z68.23 Body mass index [BMI] 23.0-23.9, adult
CPT/HCPCS: 36415; 36600; 70551; 71045; 71250; 72141; 72146; 72148; 73721; 76770; 80048; 80053; 81003; 82270; 82375; 82607; 82805; 83540; 83550; 83735; 83880; 84100; 84132; 84439; 84443; 84484; 85014; 85018; 85025; 85027; 85044; 86038; 86850; 86900; 87426; 88108; 88305; 88312; 93005; 93306; 93308; 93970; 97162; 97164; 97530; 99285; J0690; J0696; J1100; J1200; J1644; J2060; J2270; J2274; J3475; J3490; J7030; J7060

== ENCOUNTER 2022-03-20 13:58 | Inpatient (IN) | payer MEDICAID ==
[~2022-03-20] VITALS: Ht 167.6 cm; Wt 51.3 kg
[~2022-03-20 13:58] MED LIST changes: -HYDR-4001 MT; -HYDR-4350 PO; +SILV50CR31 TP
[2022-03-20] MEDS ORDERED: ONDANSETRON HCL 4MG/2ML INJ IV STA (14:23)
[2022-03-20] MEDS ORDERED: SODIUM CHLORIDE 0.9% 1,000 ML IV ONE (14:30)
[2022-03-20 14:45] LABS: HEMATOCRIT. 29.4 % (42.0-52.0); HEMOGLOBIN. 9.2 g/dL (14.0-18.0); MEAN CORPUSCULAR HEMOGLOBIN 23.9 pg (28.0-32.0); MEAN CORPUSCULAR VOLUME 76.2 fL (80.0-94.0); MEAN PLATELET VOLUME 8.3 fl (7.4-10.4); PLATELET 313 x1000/uL (130-400); RED BLOOD CELL COUNT 3.86 mill/uL (4.7-6.1)
[2022-03-20 14:52] LABS: CHLORIDE 103 mEq/L (98-107)
[2022-03-20 14:56] LABS: INR 1.4
[2022-03-20 14:59] LABS: NUCLEATED RED BLOOD CELLS 1 /100 WBC
[2022-03-20 15:00] LABS: PLATELET ESTIMATE NORMAL
[2022-03-20] MEDS ORDERED: VANCOMYCIN 1G PREMIX 200 ML IV SCH (15:45)
[2022-03-20] MEDS ORDERED: CEFEPIME 2,000 MG in DEXT 5% WATER 100 ML IV SCH (15:45)
[2022-03-20] MEDS ORDERED: ONDANSETRON HCL 4MG/2ML INJ IV NR (16:15)
[2022-03-20] MEDS ORDERED: HYDROCODONE/ACETAMINOPHEN 5/325MG TABLET PO ONE (17:00)
[2022-03-20 17:45] LABS: CLARITY URINE CLOUDY (CLEAR); COLOR URINE YELLOW (YELLOW); KETONES URINE NEGATIVE (NEGATIVE); LEUKOCYTE ESTERASE URINE NEGATIVE (NEGATIVE); NITRITE URINE NEGATIVE (NEGATIVE); OCCULT BLOOD URINE NEGATIVE (NEGATIVE); PROTEIN URINE 1+ (NEGATIVE); SPECIFIC GRAVITY URINE 1.018 (1.005-1.030)
[2022-03-20] MEDS ORDERED: LINEZOLID 600 MG PREMIX 300 ML IV SCH (18:30)
[2022-03-20] MEDS ORDERED: MEROPENEM 500 MG in SODIUM CHLORIDE 0.9% 50 ML IV SCH (18:30)
[2022-03-20] MEDS ORDERED: ENOXAPARIN 40MG/0.4ML SYR SUBCUT SCH (18:30)
[2022-03-20] MEDS: PANTOPRAZOLE SODIUM 40 MG/VIAL IV SCH (18:30)
[2022-03-20] MEDS ORDERED: NALOXONE HCL 0.4MG/ML VIAL IV PRN (18:45)
[2022-03-20] MEDS: MEROPENEM 1000MG in NORMAL SALINE 100ML IV SCH (20:00)
[2022-03-20] MEDS: LEVETIRACETAM 500MG PREMIX 100 ML IV SCH (21:36)
[2022-03-20] MEDS: ONDANSETRON HCL 4MG/2ML INJ IV PRN (21:37)
[2022-03-20] MEDS: ENOXAPARIN 30MG/0.3ML SYR SUBCUT SCH (21:47)
[2022-03-20 22:08] VITALS: BP 119/76
[2022-03-20] MEDS: HYDROMORPHONE HCL/PF 2MG/ML CPJ IV PRN (22:37)
[2022-03-21] VITALS: BP 125/82
[2022-03-21] MEDS: ONDANSETRON HCL 4MG/2ML INJ IV PRN ×2 (02:17→17:16)
[2022-03-21] MEDS: HYDROMORPHONE HCL/PF 2MG/ML CPJ IV PRN ×4 (02:18→17:17)
[2022-03-21] MEDS: SODIUM CHLORIDE 0.9% 1,000 ML IV SCH ×3 (03:06→18:24)
[2022-03-21 04:00] VITALS: BP 114/76
[2022-03-21 08:00] VITALS: BP 134/83
[2022-03-21 08:46] LABS: HEMATOCRIT. 27.5 % (42.0-52.0); HEMOGLOBIN. 8.4 g/dL (14.0-18.0); MEAN CORPUSCULAR VOLUME 78.4 fL (80.0-94.0); MEAN PLATELET VOLUME 8.3 fl (7.4-10.4); PLATELET 269 x1000/uL (130-400); RED BLOOD CELL COUNT 3.51 mill/uL (4.7-6.1); RED CELL DISTRIBUTION WIDTH 18.3 % (11.6-14.6)
[2022-03-21 09:18] LABS: PLATELET ESTIMATE NORMAL
[2022-03-21] MEDS: ACETAMINOPHEN 650MG/20.3ML UDC GT PRN ×2 (09:27→17:16)
[2022-03-21] MEDS: LINEZOLID 600 MG PREMIX 300 ML IV SCH ×2 (09:47→17:16)
[2022-03-21] MEDS: PANTOPRAZOLE SODIUM 40 MG/VIAL IV SCH (09:47)
[2022-03-21 12:09] VITALS: BP 114/79
[2022-03-21] MEDS: LEVETIRACETAM 500MG PREMIX 100 ML IV SCH ×2 (16:04→18:46)
[2022-03-21 16:29] VITALS: BP 121/75
[2022-03-21] MEDS: ENOXAPARIN 30MG/0.3ML SYR SUBCUT SCH (18:25)
[2022-03-21 20:00] VITALS: BP 108/72
[2022-03-21] MEDS: MEROPENEM 1000MG in NORMAL SALINE 100ML IV SCH (21:23)
[2022-03-22] VITALS: BP 115/74
[2022-03-22] MEDS: ACETAMINOPHEN 650MG/20.3ML UDC GT PRN ×3 (00:13→12:54)
[2022-03-22] MEDS: ONDANSETRON HCL 4MG/2ML INJ IV PRN ×5 (00:14→21:49)
[2022-03-22] MEDS: HYDROMORPHONE HCL/PF 2MG/ML CPJ IV PRN ×5 (00:14→21:49)
[2022-03-22] MEDS: SODIUM CHLORIDE 0.9% 1,000 ML IV SCH ×3 (02:22→18:37)
[2022-03-22 04:00] VITALS: BP 120/77
[2022-03-22] MEDS: LINEZOLID 600 MG PREMIX 300 ML IV SCH ×2 (05:10→18:34)
[2022-03-22 07:47] LABS: HEMATOCRIT. 24.7 % (42.0-52.0); HEMOGLOBIN. 7.6 g/dL (14.0-18.0); MEAN CORPUSCULAR VOLUME 77.4 fL (80.0-94.0); MEAN PLATELET VOLUME 8.1 fl (7.4-10.4); PLATELET 184 x1000/uL (130-400); RED BLOOD CELL COUNT 3.18 mill/uL (4.7-6.1); RED CELL DISTRIBUTION WIDTH 18.2 % (11.6-14.6)
[2022-03-22 07:52] VITALS: BP 116/74
[2022-03-22] MEDS: PANTOPRAZOLE SODIUM 40 MG/VIAL IV SCH (09:45)
[2022-03-22] MEDS: LEVETIRACETAM 500MG PREMIX 100 ML IV SCH ×2 (09:46→21:49)
[2022-03-22 12:00] VITALS: BP 112/71
[2022-03-22 14:32] LABS: PLATELET ESTIMATE NORMAL
[2022-03-22 14:35] LABS: BG BASE EXCESS -10.3 mmol/L (-2.0-2.0); BG CARBOXYHEMOGLOBIN 0.3 % (0.5-1.5); BG DEOXYHEMOGLOBIN 2.9 % (0.0-5.0); BG FRACTION INSPIRED OXYGEN 21; BG HCO3 ACT 14.4 mmol/L (22.0-26.0); BG METHEMOGLOBIN 0.2 % (0.0-1.5); BG OXYGEN SATURATION 97.1 % (92.0-98.5); BG OXYHEMOGLOBIN 96.6 % (94.0-97.0); BG PCO2 28.4 mmHg (35.0-45.0); BG PH 7.323 (7.350-7.450); BG PO2 97.9 mmHg (75.0-100.0); BG SAMPLE SITE RIGHT RADIAL; BG TOTAL HEMOGLOBIN 10.8 g/dL (12.0-18.0); BG VENT MODE ROOM AIR
[2022-03-22] MEDS: HYDROCODONE/ACETAMINOPHEN 5/325MG TABLET PO PRN (14:50)
[2022-03-22] MEDS: MEROPENEM 1000MG in NORMAL SALINE 100ML IV SCH ×2 (14:54→21:49)
[2022-03-22 16:18] VITALS: BP 120/77
[2022-03-22 17:24] LABS: HEMATOCRIT 25.3 % (42.0-52.0); HEMOGLOBIN 7.8 g/dL (14.0-18.0)
[2022-03-22 20:00] VITALS: BP 117/82
[2022-03-22] MEDS: IPRATROPIUM/ALBUTEROL 0.5-3(2.5)MG/3ML NEB HHN SCH (21:42)
[2022-03-22] MEDS: HYDROCODONE/ACETAMINOPHEN 10/325MG TABLET PO PRN (22:43)
[2022-03-23] VITALS (12 sets, daily range): BP systolic 97–156; BP diastolic 52–85
[2022-03-23] MEDS: IPRATROPIUM/ALBUTEROL 0.5-3(2.5)MG/3ML NEB HHN SCH ×3 (01:39→13:24)
[2022-03-23] MEDS: HYDROMORPHONE HCL/PF 2MG/ML CPJ IV PRN ×4 (02:15→21:21)
[2022-03-23] MEDS: TEMAZEPAM 15MG CAPSULE PO PRN ×2 (02:17→23:58)
[2022-03-23] MEDS: SODIUM CHLORIDE 0.9% 1,000 ML IV SCH ×2 (02:18→09:45)
[2022-03-23] MEDS: ONDANSETRON HCL 4MG/2ML INJ IV PRN ×3 (06:13→14:02)
[2022-03-23] MEDS: LINEZOLID 600 MG PREMIX 300 ML IV SCH (06:13)
[2022-03-23] MEDS: HYDROCODONE/ACETAMINOPHEN 5/325MG TABLET PO PRN (07:38)
[2022-03-23] MEDS: LEVETIRACETAM 500MG PREMIX 100 ML IV SCH ×2 (09:43→23:31)
[2022-03-23] MEDS: PANTOPRAZOLE SODIUM 40 MG/VIAL IV SCH (09:44)
[2022-03-23] MEDS ORDERED: DILTIAZEM HCL 5MG/ML 5ML VIAL IV NR (10:15)
[2022-03-23] MEDS: MEROPENEM 1000MG in NORMAL SALINE 100ML IV SCH ×2 (10:59→23:31)
[2022-03-23] MEDS: SODIUM BICARBONATE 650 MG TABLET PO SCH ×2 (11:10→21:00)
[2022-03-23] MEDS: HYDROCODONE/ACETAMINOPHEN 10/325MG TABLET PO PRN (14:03)
[2022-03-23 14:41] LABS: BG CARBOXYHEMOGLOBIN 0.5 % (0.5-1.5); BG DEOXYHEMOGLOBIN 2.7 % (0.0-5.0); BG FRACTION INSPIRED OXYGEN 21; BG HCO3 ACT 13.9 mmol/L (22.0-26.0); BG METHEMOGLOBIN 0.5 % (0.0-1.5); BG OXYGEN SATURATION 97.3 % (92.0-98.5); BG OXYHEMOGLOBIN 96.3 % (94.0-97.0); BG PCO2 27.4 mmHg (35.0-45.0); BG PH 7.322 (7.350-7.450); BG PO2 100.7 mmHg (75.0-100.0); BG VENT MODE ROOM AIR
[2022-03-23] MEDS ORDERED: BUPIVACAINE HCL/PF 0.25% (2.5MG/ML) 10ML ONE (14:52)
[2022-03-23] MEDS ORDERED: POLYMYXIN B SULFATE 500000 UNITS/VIAL ONE (14:52)
[2022-03-23] MEDS ORDERED: SKIN ADHESIVE 0.7 GM EA TOP ONE (14:52)
[2022-03-23] MEDS ORDERED: NOREPINEPHRINE 8 MG in DEXT 5% WATER 242 ML IV ONE (15:00)
[2022-03-23] MEDS ORDERED: NOREPINEPHRINE 8 MG in DEXT 5% WATER 242 ML IV SCH (15:00)
[2022-03-23] MEDS ORDERED: EPINEPHRINE 5 MG in DEXT 5% WATER 245 ML IV SCH (15:00)
[2022-03-23 17:11] LABS: HEMOGLOBIN. 8.2 g/dL (14.0-18.0); MEAN CORPUSCULAR VOLUME 79.3 fL (80.0-94.0); MEAN PLATELET VOLUME 8.3 fl (7.4-10.4); PLATELET 188 x1000/uL (130-400); RED BLOOD CELL COUNT 3.41 mill/uL (4.7-6.1); RED CELL DISTRIBUTION WIDTH 18.7 % (11.6-14.6)
[2022-03-23 17:31] LABS: CHLORIDE 108 mEq/L (98-107)
[2022-03-23 17:33] LABS: NUCLEATED RED BLOOD CELLS 1 /100 WBC; PLATELET ESTIMATE NORMAL
[2022-03-23] MEDS ORDERED: ROCURONIUM BROMIDE 10MG/ML VIAL 5ML IV ONE (17:43)
[2022-03-23] MEDS ORDERED: DEXAMETHASONE 4MG/ML 1ML VIAL ONE (18:50)
[2022-03-23] MEDS ORDERED: FUROSEMIDE 100MG/10ML VIAL ONE (18:50)
[2022-03-23] MEDS ORDERED: HYDRALAZINE 20MG/ML VIAL ONE (18:50)
[2022-03-23] MEDS ORDERED: GLYCOPYRROLATE 0.2 MG/ML 2ML VIAL ONE (19:09)
[2022-03-23] MEDS ORDERED: DEXT 5%/0.45% NACL 1000ML 1,000 ML IV SCH (19:30)
[2022-03-23] MEDS ORDERED: ACETAMINOPHEN 325MG TABLET PO PRN (19:30)
[2022-03-23] MEDS ORDERED: SODIUM CHLORIDE 0.9% 500 ML IV PRN (19:30)
[2022-03-23] MEDS: MORPHINE SULFATE 2 MG/ML CPJ (NOT FOR IM USE) IV PRN (19:57)
[2022-03-23] MEDS ORDERED: CEFAZOLIN 1000MG PREMIX 50 ML IV SCH (20:30)
[2022-03-23 21:10] LABS: BG BASE EXCESS -10.9 mmol/L (-2.0-2.0); BG CARBOXYHEMOGLOBIN 0.3 % (0.5-1.5); BG DEOXYHEMOGLOBIN 9.6 % (0.0-5.0); BG FRACTION INSPIRED OXYGEN 40; BG HCO3 ACT 14.4 mmol/L (22.0-26.0); BG METHEMOGLOBIN 0.5 % (0.0-1.5); BG OXYGEN SATURATION 90.3 % (92.0-98.5); BG OXYHEMOGLOBIN 89.6 % (94.0-97.0); BG PCO2 29.7 mmHg (35.0-45.0); BG PH 7.302 (7.350-7.450); BG PO2 63.5 mmHg (75.0-100.0); BG SAMPLE SITE LEFT RADIAL; BG TOTAL HEMOGLOBIN 9.4 g/dL (12.0-18.0); BG VENT MODE NASAL CANNULA
[2022-03-23] MEDS: CEFAZOLIN 1000MG PREMIX 50 ML IV SCH (22:00)
[2022-03-23] MEDS: OXYCODONE HCL/ACETAMINOPHEN 5/325MG TABLET PO PRN (22:51)
[2022-03-23] MEDS: CEFAZOLIN 2,000 MG in DEXT 5% WATER 100 ML IV SCH ×2 (23:30→23:44)
[2022-03-24] VITALS (48 sets, daily range): BP systolic 110–158; BP diastolic 60–90
[2022-03-24] MEDS: IPRATROPIUM/ALBUTEROL 0.5-3(2.5)MG/3ML NEB HHN SCH ×5 (02:16→20:37)
[2022-03-24] MEDS: CEFAZOLIN 1000MG PREMIX 50 ML IV SCH ×3 (05:57→22:23)
[2022-03-24] MEDS: LINEZOLID 600 MG PREMIX 300 ML IV SCH ×3 (05:58→17:47)
[2022-03-24 06:00] LABS: HEMATOCRIT. 28.3 % (42.0-52.0); HEMOGLOBIN. 8.8 g/dL (14.0-18.0); MEAN CORPUSCULAR HEMOGLOBIN 23.8 pg (28.0-32.0); MEAN PLATELET VOLUME 8.4 fl (7.4-10.4); PLATELET 223 x1000/uL (130-400); RED BLOOD CELL COUNT 3.68 mill/uL (4.7-6.1); RED CELL DISTRIBUTION WIDTH 18.6 % (11.6-14.6)
[2022-03-24 06:29] LABS: INR 1.6; PARTIAL THROMBOPLASTIN TIME 55.2 sec (23.4-31.0); PROTHROMBIN TIME 16.8 sec (9.6-11.0)
[2022-03-24] MEDS: HYDROMORPHONE HCL/PF 2MG/ML CPJ IV PRN ×2 (06:37→20:10)
[2022-03-24 06:42] LABS: PHOSPHORUS 6.3 mg/dL (2.5-4.9)
[2022-03-24 07:27] LABS: PLATELET ESTIMATE NORMAL
[2022-03-24] MEDS ORDERED: NOREPINEPHRINE 8 MG in DEXTROSE 5% WATER 250 ML IV NR (08:00)
[2022-03-24] MEDS ORDERED: DOPAMINE HCL 400 MG in DEXT 5% WATER 240 ML IV NR (08:00)
[2022-03-24] MEDS ORDERED: EPINEPHRINE 5 MG in SODIUM CHLORIDE 0.9% 250 ML IV NR (08:01)
[2022-03-24] MEDS: OXYCODONE HCL/ACETAMINOPHEN 5/325MG TABLET PO PRN ×3 (09:48→17:48)
[2022-03-24] MEDS: DOCUSATE SODIUM 100MG CAPSULE PO SCH ×2 (09:48→17:47)
[2022-03-24] MEDS: PANTOPRAZOLE SODIUM 40 MG/VIAL IV SCH (09:48)
[2022-03-24] MEDS: SODIUM BICARBONATE 650 MG TABLET PO SCH ×2 (09:49→21:14)
[2022-03-24] MEDS: MEROPENEM 1000MG in NORMAL SALINE 100ML IV SCH ×2 (09:49→21:13)
[2022-03-24] MEDS: LEVETIRACETAM 500MG PREMIX 100 ML IV SCH ×2 (09:49→21:14)
[2022-03-24 13:25] LABS: BG BASE EXCESS -12.2 mmol/L (-2.0-2.0); BG CARBOXYHEMOGLOBIN 0.3 % (0.5-1.5); BG DEOXYHEMOGLOBIN 1.5 % (0.0-5.0); BG FRACTION INSPIRED OXYGEN 32; BG HCO3 ACT 12.9 mmol/L (22.0-26.0); BG METHEMOGLOBIN 0.2 % (0.0-1.5); BG OXYGEN SATURATION 98.5 % (92.0-98.5); BG PCO2 26.5 mmHg (35.0-45.0); BG PH 7.305 (7.350-7.450); BG PO2 150.2 mmHg (75.0-100.0); BG SAMPLE SITE ALINE; BG TOTAL HEMOGLOBIN 7.7 g/dL (12.0-18.0); BG VENT MODE NASAL CANNULA
[2022-03-24] MEDS: DEXT 5%/0.9% NACL 1,000 ML IV SCH (13:52)
[2022-03-24] MEDS: COLISTIMETHATE SODIUM 150MG/VIAL INH SCH ×2 (17:19→20:44)
[2022-03-24 18:50] LABS: CLARITY URINE CLEAR (CLEAR); COLOR URINE YELLOW (YELLOW); KETONES URINE NEGATIVE (NEGATIVE); LEUKOCYTE ESTERASE URINE NEGATIVE (NEGATIVE); NITRITE URINE NEGATIVE (NEGATIVE); OCCULT BLOOD URINE NEGATIVE (NEGATIVE); PROTEIN URINE 1+ (NEGATIVE); SPECIFIC GRAVITY URINE 1.012 (1.005-1.030); UROBILINOGEN URINE 0.2 E.U./dL (0.2-1.0)
[2022-03-25] VITALS (48 sets, daily range): BP systolic 99–152; BP diastolic 43–81
[2022-03-25] MEDS: IPRATROPIUM/ALBUTEROL 0.5-3(2.5)MG/3ML NEB HHN SCH ×6 (00:33→20:26)
[2022-03-25] MEDS: OXYCODONE HCL/ACETAMINOPHEN 5/325MG TABLET PO PRN ×4 (00:34→20:37)
[2022-03-25] MEDS: HYDROMORPHONE HCL/PF 2MG/ML CPJ IV PRN ×3 (02:44→18:16)
[2022-03-25] MEDS: LINEZOLID 600 MG PREMIX 300 ML IV SCH ×2 (05:14→17:43)
[2022-03-25 06:11] LABS: HEMATOCRIT. 23.4 % (42.0-52.0); HEMOGLOBIN. 7.5 g/dL (14.0-18.0); MEAN CORPUSCULAR HEMOGLOBIN 24.7 pg (28.0-32.0); MEAN CORPUSCULAR VOLUME 76.7 fL (80.0-94.0); MEAN PLATELET VOLUME 7.9 fl (7.4-10.4); PLATELET 179 x1000/uL (130-400); RED BLOOD CELL COUNT 3.05 mill/uL (4.7-6.1); RED CELL DISTRIBUTION WIDTH 18.7 % (11.6-14.6)
[2022-03-25 06:29] LABS: PHOSPHORUS 5.5 mg/dL (2.5-4.9)
[2022-03-25] MEDS: DEXT 5%/0.9% NACL 1,000 ML IV SCH (07:22)
[2022-03-25 07:50] LABS: PLATELET ESTIMATE NORMAL
[2022-03-25] MEDS: SODIUM BICARBONATE 650 MG TABLET PO SCH ×2 (08:38→20:35)
[2022-03-25] MEDS: DOCUSATE SODIUM 100MG CAPSULE PO SCH ×2 (08:39→17:43)
[2022-03-25] MEDS: PANTOPRAZOLE SODIUM 40 MG/VIAL IV SCH (08:39)
[2022-03-25] MEDS: LEVETIRACETAM 500MG PREMIX 100 ML IV SCH ×2 (08:39→20:35)
[2022-03-25] MEDS: MEROPENEM 1000MG in NORMAL SALINE 100ML IV SCH ×2 (08:39→20:35)
[2022-03-25] MEDS: TEMAZEPAM 15MG CAPSULE PO PRN (20:35)
[2022-03-25] MEDS: ONDANSETRON HCL 4MG/2ML INJ IV PRN (20:35)
[2022-03-25] MEDS: COLISTIMETHATE SODIUM 150MG/VIAL INH SCH (20:43)
[2022-03-26] VITALS (19 sets, daily range): BP systolic 100–131; BP diastolic 56–88
[2022-03-26] MEDS: MORPHINE SULFATE 2 MG/ML CPJ (NOT FOR IM USE) IV PRN ×4 (00:08→17:43)
[2022-03-26] MEDS: IPRATROPIUM/ALBUTEROL 0.5-3(2.5)MG/3ML NEB HHN SCH ×6 (00:19→21:10)
[2022-03-26] MEDS: OXYCODONE HCL/ACETAMINOPHEN 5/325MG TABLET PO PRN ×5 (01:25→21:42)
[2022-03-26] MEDS: ONDANSETRON HCL 4MG/2ML INJ IV PRN ×2 (01:25→21:31)
[2022-03-26] MEDS: DEXT 5%/0.9% NACL 1,000 ML IV SCH ×2 (02:53→23:36)
[2022-03-26] MEDS: LINEZOLID 600 MG PREMIX 300 ML IV SCH ×2 (05:35→19:50)
[2022-03-26 05:55] LABS: HEMATOCRIT. 23.2 % (42.0-52.0); HEMOGLOBIN. 7.4 g/dL (14.0-18.0); MEAN CORPUSCULAR HEMOGLOBIN 24.2 pg (28.0-32.0); MEAN CORPUSCULAR VOLUME 76.3 fL (80.0-94.0); MEAN PLATELET VOLUME 8.1 fl (7.4-10.4); PLATELET 121 x1000/uL (130-400); RED BLOOD CELL COUNT 3.04 mill/uL (4.7-6.1); RED CELL DISTRIBUTION WIDTH 18.7 % (11.6-14.6)
[2022-03-26 06:07] LABS: PHOSPHORUS 3.5 mg/dL (2.5-4.9)
[2022-03-26] MEDS: COLISTIMETHATE SODIUM 150MG/VIAL INH SCH ×2 (08:00→21:11)
[2022-03-26] MEDS: SODIUM BICARBONATE 650 MG TABLET PO SCH ×2 (08:04→21:37)
[2022-03-26] MEDS: PANTOPRAZOLE SODIUM 40 MG/VIAL IV SCH (08:04)
[2022-03-26] MEDS: DOCUSATE SODIUM 100MG CAPSULE PO SCH ×2 (08:04→17:43)
[2022-03-26] MEDS: MEROPENEM 1000MG in NORMAL SALINE 100ML IV SCH ×2 (08:05→21:37)
[2022-03-26] MEDS: LEVETIRACETAM 500MG PREMIX 100 ML IV SCH ×2 (08:05→21:31)
[2022-03-26 12:51] LABS: NUCLEATED RED BLOOD CELLS 2 /100 WBC
[2022-03-26 12:52] LABS: PLATELET ESTIMATE SLIGHTLY DECREASED
[2022-03-26] MEDS: COLCHICINE 0.6MG TABLET PO SCH (14:08)
[2022-03-26] MEDS ORDERED: EPOETIN ALFA-EPBX 10,000 UNIT/ML VIAL SUBCUT NR (21:00)
[2022-03-26] MEDS: TEMAZEPAM 15MG CAPSULE PO PRN (21:41)
[2022-03-27] VITALS (13 sets, daily range): BP systolic 105–139; BP diastolic 69–98
[2022-03-27] MEDS: MORPHINE SULFATE 2 MG/ML CPJ (NOT FOR IM USE) IV PRN ×3 (03:47→22:10)
[2022-03-27] MEDS: IPRATROPIUM/ALBUTEROL 0.5-3(2.5)MG/3ML NEB HHN SCH ×6 (04:41→20:09)
[2022-03-27] MEDS: LINEZOLID 600 MG PREMIX 300 ML IV SCH ×2 (05:47→18:00)
[2022-03-27 06:55] LABS: HEMATOCRIT. 30.9 % (42.0-52.0); HEMOGLOBIN. 9.9 g/dL (14.0-18.0); MEAN CORPUSCULAR HEMOGLOBIN 25.4 pg (28.0-32.0); MEAN CORPUSCULAR VOLUME 79.6 fL (80.0-94.0); MEAN PLATELET VOLUME 8.8 fl (7.4-10.4); PLATELET 95 x1000/uL (130-400); RED BLOOD CELL COUNT 3.89 mill/uL (4.7-6.1); RED CELL DISTRIBUTION WIDTH 19.6 % (11.6-14.6)
[2022-03-27 07:52] LABS: PHOSPHORUS 4.3 mg/dL (2.5-4.9)
[2022-03-27] MEDS: MEROPENEM 1000MG in NORMAL SALINE 100ML IV SCH ×2 (08:47→22:10)
[2022-03-27] MEDS: LEVETIRACETAM 500MG PREMIX 100 ML IV SCH ×2 (08:47→20:55)
[2022-03-27] MEDS: DOCUSATE SODIUM 100MG CAPSULE PO SCH ×2 (08:47→17:00)
[2022-03-27] MEDS: PANTOPRAZOLE SODIUM 40 MG/VIAL IV SCH (08:47)
[2022-03-27] MEDS: COLCHICINE 0.6MG TABLET PO SCH (08:47)
[2022-03-27] MEDS: SODIUM BICARBONATE 650 MG TABLET PO SCH (08:47)
[2022-03-27] MEDS: OXYCODONE HCL/ACETAMINOPHEN 5/325MG TABLET PO PRN ×2 (12:00→20:56)
[2022-03-27] MEDS: ONDANSETRON HCL 4MG/2ML INJ IV PRN (12:10)
[2022-03-27] MEDS: COLISTIMETHATE SODIUM 150MG/VIAL INH SCH ×2 (12:18→20:15)
[2022-03-27] MEDS: SODIUM BICARBONATE 100 MEQ in DEXT 5%/0.2% NACL 1,000 ML IV SCH (14:09)
[2022-03-27 14:45] LABS: NUCLEATED RED BLOOD CELLS 1 /100 WBC
[2022-03-27 14:46] LABS: PLATELET ESTIMATE DECREASED
[2022-03-27] MEDS ORDERED: NALOXONE HCL 0.4MG/ML VIAL IV PRN (18:15)
[2022-03-27] MEDS: TEMAZEPAM 15MG CAPSULE PO PRN (21:07)
[2022-03-28] VITALS (12 sets, daily range): BP systolic 103–127; BP diastolic 56–84
[2022-03-28] MEDS: IPRATROPIUM/ALBUTEROL 0.5-3(2.5)MG/3ML NEB HHN SCH ×6 (00:45→20:00)
[2022-03-28] MEDS: OXYCODONE HCL/ACETAMINOPHEN 5/325MG TABLET PO PRN ×3 (01:41→18:49)
[2022-03-28] MEDS: MORPHINE SULFATE 2 MG/ML CPJ (NOT FOR IM USE) IV PRN ×2 (02:35→15:25)
[2022-03-28] MEDS: LINEZOLID 600 MG PREMIX 300 ML IV SCH ×2 (05:32→18:00)
[2022-03-28 06:16] LABS: HEMATOCRIT. 27.7 % (42.0-52.0); MEAN CORPUSCULAR HEMOGLOBIN 25.2 pg (28.0-32.0); MEAN CORPUSCULAR VOLUME 77.4 fL (80.0-94.0); MEAN PLATELET VOLUME 8.7 fl (7.4-10.4); PLATELET 70 x1000/uL (130-400); RED BLOOD CELL COUNT 3.58 mill/uL (4.7-6.1); RED CELL DISTRIBUTION WIDTH 19.6 % (11.6-14.6)
[2022-03-28] MEDS: SODIUM BICARBONATE 100 MEQ in DEXT 5%/0.2% NACL 1,000 ML IV SCH ×2 (07:01→20:53)
[2022-03-28] MEDS: LEVETIRACETAM 500MG PREMIX 100 ML IV SCH ×2 (09:02→20:58)
[2022-03-28] MEDS: DOCUSATE SODIUM 100MG CAPSULE PO SCH ×2 (09:02→16:08)
[2022-03-28] MEDS: MEROPENEM 1000MG in NORMAL SALINE 100ML IV SCH ×2 (09:02→20:57)
[2022-03-28] MEDS: COLCHICINE 0.6MG TABLET PO SCH (09:02)
[2022-03-28] MEDS: PANTOPRAZOLE SODIUM 40 MG/VIAL IV SCH (09:02)
[2022-03-28] MEDS: ONDANSETRON HCL 4MG/2ML INJ IV PRN (09:11)
[2022-03-28 09:58] LABS: PLATELET ESTIMATE DECREASED
[2022-03-28] MEDS ORDERED: LIDOCAINE HCL 1% 10 MG/ML 10ML VIAL ONE (10:58)
[2022-03-28] MEDS: COLISTIMETHATE SODIUM 150MG/VIAL INH SCH (20:00)
[2022-03-28] MEDS: HYDROCODONE/ACETAMINOPHEN 10/325MG TABLET PO PRN (21:29)
[2022-03-29] VITALS (12 sets, daily range): BP systolic 100–140; BP diastolic 63–85
[2022-03-29] MEDS: IPRATROPIUM/ALBUTEROL 0.5-3(2.5)MG/3ML NEB HHN SCH ×6 (00:05→21:10)
[2022-03-29] MEDS: HYDROCODONE/ACETAMINOPHEN 10/325MG TABLET PO PRN ×3 (03:20→21:18)
[2022-03-29 06:43] LABS: BASOPHILS % 0.1 % (0.0-2.0); EOSINOPHILS % 0.2 % (0.0-5.0); HEMATOCRIT. 29.3 % (42.0-52.0); HEMOGLOBIN. 9.5 g/dL (14.0-18.0); LYMPHOCYTES % 3.2 % (20.0-50.0); MEAN CORPUSCULAR HEMOGLOBIN 25.4 pg (28.0-32.0); MEAN PLATELET VOLUME 9.9 fl (7.4-10.4); MONOCYTES % 5.1 % (2.0-8.0); NEUTROPHILS % 91.4 % (40.0-76.0); PLATELET 59 x1000/uL (130-400); RED BLOOD CELL COUNT 3.76 mill/uL (4.7-6.1); RED CELL DISTRIBUTION WIDTH 20.3 % (11.6-14.6)
[2022-03-29] MEDS: SODIUM BICARBONATE 100 MEQ in DEXT 5%/0.2% NACL 1,000 ML IV SCH ×2 (06:52→15:29)
[2022-03-29] MEDS: LINEZOLID 600 MG PREMIX 300 ML IV SCH ×2 (07:04→17:45)
[2022-03-29 07:37] LABS: CHLORIDE 104 mEq/L (98-107)
[2022-03-29] MEDS: COLCHICINE 0.6MG TABLET PO SCH (07:45)
[2022-03-29] MEDS: PANTOPRAZOLE SODIUM 40 MG/VIAL IV SCH (07:45)
[2022-03-29] MEDS: DOCUSATE SODIUM 100MG CAPSULE PO SCH ×2 (07:45→16:47)
[2022-03-29 07:47] LABS: PHOSPHORUS 3.7 mg/dL (2.5-4.9)
[2022-03-29] MEDS: ONDANSETRON HCL 4MG/2ML INJ IV PRN (09:23)
[2022-03-29] MEDS: LEVETIRACETAM 500MG PREMIX 100 ML IV SCH ×2 (09:24→21:17)
[2022-03-29] MEDS: MEROPENEM 1,000 MG in SODIUM CHLORIDE 0.9% 100 ML IV SCH ×2 (09:34→16:47)
[2022-03-29] MEDS: COLISTIMETHATE SODIUM 150MG/VIAL INH SCH ×2 (09:47→21:09)
[2022-03-29] MEDS: OXYCODONE HCL/ACETAMINOPHEN 5/325MG TABLET PO PRN ×2 (10:51→19:52)
[2022-03-30] VITALS (12 sets, daily range): BP systolic 97–118; BP diastolic 59–81
[2022-03-30] MEDS: SODIUM BICARBONATE 100 MEQ in DEXT 5%/0.2% NACL 1,000 ML IV SCH (00:15)
[2022-03-30] MEDS: MEROPENEM 1,000 MG in SODIUM CHLORIDE 0.9% 100 ML IV SCH ×3 (00:15→17:12)
[2022-03-30] MEDS: OXYCODONE HCL/ACETAMINOPHEN 5/325MG TABLET PO PRN ×3 (03:59→19:53)
[2022-03-30] MEDS: IPRATROPIUM/ALBUTEROL 0.5-3(2.5)MG/3ML NEB HHN SCH ×6 (04:00→21:17)
[2022-03-30] MEDS: LINEZOLID 600 MG PREMIX 300 ML IV SCH (04:57)
[2022-03-30 06:15] LABS: PHOSPHORUS 2.9 mg/dL (2.5-4.9)
[2022-03-30 06:17] LABS: HEMOGLOBIN. 9.9 g/dL (14.0-18.0); MEAN CORPUSCULAR HEMOGLOBIN 25.2 pg (28.0-32.0); MEAN CORPUSCULAR VOLUME 81.1 fL (80.0-94.0); MEAN PLATELET VOLUME 9.3 fl (7.4-10.4); PLATELET 59 x1000/uL (130-400); RED BLOOD CELL COUNT 3.95 mill/uL (4.7-6.1); RED CELL DISTRIBUTION WIDTH 20.7 % (11.6-14.6)
[2022-03-30] MEDS: COLISTIMETHATE SODIUM 150MG/VIAL INH SCH (08:26)
[2022-03-30] MEDS: HYDROCODONE/ACETAMINOPHEN 10/325MG TABLET PO PRN ×2 (08:55→23:19)
[2022-03-30] MEDS: PANTOPRAZOLE SODIUM 40 MG/VIAL IV SCH (09:00)
[2022-03-30] MEDS: DOCUSATE SODIUM 100MG CAPSULE PO SCH ×2 (09:00→17:00)
[2022-03-30] MEDS: LEVETIRACETAM 500MG PREMIX 100 ML IV SCH ×2 (09:15→20:51)
[2022-03-30] MEDS: ONDANSETRON HCL 4MG/2ML INJ IV PRN (09:15)
[2022-03-30] MEDS: COLCHICINE 0.6MG TABLET PO SCH (09:15)
[2022-03-30] MEDS ORDERED: DAPTOMYCIN 450 MG in SODIUM CHLORIDE 0.9% 50 ML IV SCH (14:00)
[2022-03-30 17:18] LABS: PLATELET ESTIMATE DECREASED
[2022-03-31] VITALS (11 sets, daily range): BP systolic 95–123; BP diastolic 48–81
[2022-03-31] MEDS: IPRATROPIUM/ALBUTEROL 0.5-3(2.5)MG/3ML NEB HHN SCH ×6 (00:35→20:00)
[2022-03-31] MEDS: MEROPENEM 1,000 MG in SODIUM CHLORIDE 0.9% 100 ML IV SCH ×4 (00:42→22:10)
[2022-03-31] MEDS: OXYCODONE HCL/ACETAMINOPHEN 5/325MG TABLET PO PRN ×4 (02:10→21:52)
[2022-03-31] MEDS: TEMAZEPAM 15MG CAPSULE PO PRN ×2 (02:10→21:52)
[2022-03-31 07:27] LABS: HEMATOCRIT. 26.1 % (42.0-52.0); HEMOGLOBIN. 8.5 g/dL (14.0-18.0); MEAN CORPUSCULAR HEMOGLOBIN 25.6 pg (28.0-32.0); MEAN PLATELET VOLUME 9.1 fl (7.4-10.4); RED BLOOD CELL COUNT 3.31 mill/uL (4.7-6.1); RED CELL DISTRIBUTION WIDTH 20.2 % (11.6-14.6)
[2022-03-31 08:03] LABS: PHOSPHORUS 3.9 mg/dL (2.5-4.9)
[2022-03-31 08:04] LABS: PLATELET 46 x1000/uL (130-400)
[2022-03-31] MEDS: COLISTIMETHATE SODIUM 150MG/VIAL INH SCH ×2 (08:33→18:00)
[2022-03-31] MEDS: PANTOPRAZOLE SODIUM 40 MG/VIAL IV SCH (08:51)
[2022-03-31] MEDS: COLCHICINE 0.6MG TABLET PO SCH (08:52)
[2022-03-31] MEDS: SODIUM POLYSTYRENE SULFONATE 15 G/60 ML BOT PO NR ×3 (09:00→12:18)
[2022-03-31] MEDS: LEVETIRACETAM 500MG PREMIX 100 ML IV SCH ×2 (09:00→21:52)
[2022-03-31] MEDS: DOCUSATE SODIUM 100MG CAPSULE PO SCH ×2 (09:00→17:00)
[2022-03-31 10:03] LABS: PLATELET ESTIMATE MARKEDLY DECREASED
[2022-03-31] MEDS ORDERED: VANCOMYCIN 1500MG in DEXTROSE 5% WATER 250ML IV NR (12:00)
[2022-03-31] MEDS: PREDNISONE 20MG TABLET PO SCH (15:58)
[2022-03-31] MEDS: ONDANSETRON HCL 4MG/2ML INJ IV PRN (23:55)
[2022-04-01] VITALS (11 sets, daily range): BP systolic 116–141; BP diastolic 64–83
[2022-04-01] MEDS: OXYCODONE HCL/ACETAMINOPHEN 5/325MG TABLET PO PRN ×3 (01:32→15:20)
[2022-04-01] MEDS: IPRATROPIUM/ALBUTEROL 0.5-3(2.5)MG/3ML NEB HHN SCH ×6 (04:54→20:41)
[2022-04-01 07:46] LABS: HEMATOCRIT. 24.7 % (42.0-52.0); HEMOGLOBIN. 7.9 g/dL (14.0-18.0); MEAN CORPUSCULAR HEMOGLOBIN 25.7 pg (28.0-32.0); MEAN CORPUSCULAR VOLUME 80.2 fL (80.0-94.0); RED BLOOD CELL COUNT 3.08 mill/uL (4.7-6.1); RED CELL DISTRIBUTION WIDTH 20.6 % (11.6-14.6)
[2022-04-01] MEDS: PANTOPRAZOLE SODIUM 40 MG/VIAL IV SCH (08:41)
[2022-04-01] MEDS: LEVETIRACETAM 500MG PREMIX 100 ML IV SCH ×2 (08:41→20:19)
[2022-04-01] MEDS: DOCUSATE SODIUM 100MG CAPSULE PO SCH ×2 (08:41→17:00)
[2022-04-01] MEDS: COLCHICINE 0.6MG TABLET PO SCH (08:41)
[2022-04-01] MEDS: PREDNISONE 20MG TABLET PO SCH ×2 (08:46→17:00)
[2022-04-01] MEDS: COLISTIMETHATE SODIUM 150MG/VIAL INH SCH ×2 (09:04→20:41)
[2022-04-01] MEDS ORDERED: VANCOMYCIN 1GM PMX (XELLIA) 200 ML IV SCH (11:00)
[2022-04-01] MEDS: SODIUM POLYSTYRENE SULFONATE 15 G/60 ML BOT PO SCH ×2 (11:00→16:05)
[2022-04-01 13:00] LABS: NUCLEATED RED BLOOD CELLS 1 /100 WBC
[2022-04-01 13:15] LABS: PLATELET ESTIMATE DECREASED
[2022-04-01] MEDS ORDERED: INSULIN REGULAR (HUMULIN R) 300UNITS/3ML VIAL IV SCH (15:15)
[2022-04-01] MEDS ORDERED: DEXTROSE 50% WATER 50ML SYRINGE IV SCH (15:15)
[2022-04-01] MEDS: MEROPENEM 1,000 MG in SODIUM CHLORIDE 0.9% 100 ML IV SCH (15:19)
[2022-04-01] MEDS ORDERED: SODIUM BICARBONATE 8.4% 1 MEQ/ML 50ML SYR IV SCH (16:00)
[2022-04-01] MEDS ORDERED: CALCIUM GLUCONATE 1GM PREMIX 50 ML IV SCH (16:00)
[2022-04-01] MEDS ORDERED: VANCOMYCIN 1G PREMIX 200 ML IV NR (21:00)
[2022-04-02] VITALS (11 sets, daily range): BP systolic 107–171; BP diastolic 55–114
[2022-04-02] MEDS: MEROPENEM 1,000 MG in SODIUM CHLORIDE 0.9% 100 ML IV SCH ×2 (00:06→11:30)
[2022-04-02] MEDS: OXYCODONE HCL/ACETAMINOPHEN 5/325MG TABLET PO PRN ×5 (00:06→21:59)
[2022-04-02] MEDS: IPRATROPIUM/ALBUTEROL 0.5-3(2.5)MG/3ML NEB HHN SCH ×6 (00:23→21:53)
[2022-04-02] MEDS: TEMAZEPAM 15MG CAPSULE PO PRN (03:01)
[2022-04-02 07:24] LABS: HEMATOCRIT. 25.9 % (42.0-52.0); HEMOGLOBIN. 8.2 g/dL (14.0-18.0); MEAN CORPUSCULAR HEMOGLOBIN 25.3 pg (28.0-32.0); MEAN CORPUSCULAR VOLUME 80.3 fL (80.0-94.0); MEAN PLATELET VOLUME 8.8 fl (7.4-10.4); PLATELET 79 x1000/uL (130-400); RED BLOOD CELL COUNT 3.22 mill/uL (4.7-6.1)
[2022-04-02 07:51] LABS: PHOSPHORUS 2.6 mg/dL (2.5-4.9)
[2022-04-02] MEDS ORDERED: SODIUM POLYSTYRENE SULFONATE 15 G/60 ML BOT PO NR ×2 (09:15→23:15)
[2022-04-02 09:28] LABS: NUCLEATED RED BLOOD CELLS 1 /100 WBC
[2022-04-02 09:29] LABS: PLATELET ESTIMATE DECREASED
[2022-04-02] MEDS: COLISTIMETHATE SODIUM 150MG/VIAL INH SCH ×2 (09:46→21:53)
[2022-04-02] MEDS: PANTOPRAZOLE SODIUM 40 MG/VIAL IV SCH (09:54)
[2022-04-02] MEDS: DOCUSATE SODIUM 100MG CAPSULE PO SCH ×2 (09:55→17:00)
[2022-04-02] MEDS: PREDNISONE 20MG TABLET PO SCH ×2 (09:55→18:59)
[2022-04-02] MEDS: COLCHICINE 0.6MG TABLET PO SCH (09:55)
[2022-04-02] MEDS: LEVETIRACETAM 500MG PREMIX 100 ML IV SCH ×2 (09:57→21:44)
[2022-04-02 10:12] LABS: ANTI-DNA DOUBLE STRANDED QUANT < 1 IU/mL (0-9)
[2022-04-02] MEDS ORDERED: NALOXONE HCL 0.4MG/ML VIAL IV PRN (17:00)
[2022-04-03] VITALS (10 sets, daily range): BP systolic 99–122; BP diastolic 66–86
[2022-04-03] MEDS: MEROPENEM 1,000 MG in SODIUM CHLORIDE 0.9% 100 ML IV SCH ×3 (00:19→23:05)
[2022-04-03] MEDS: OXYCODONE HCL/ACETAMINOPHEN 5/325MG TABLET PO PRN ×4 (00:59→23:12)
[2022-04-03] MEDS: IPRATROPIUM/ALBUTEROL 0.5-3(2.5)MG/3ML NEB HHN SCH ×7 (01:37→23:57)
[2022-04-03] MEDS: TEMAZEPAM 15MG CAPSULE PO PRN (02:44)
[2022-04-03] MEDS: DOCUSATE SODIUM 100MG CAPSULE PO SCH ×2 (08:32→17:00)
[2022-04-03] MEDS: PANTOPRAZOLE SODIUM 40 MG/VIAL IV SCH (09:00)
[2022-04-03] MEDS: PREDNISONE 20MG TABLET PO SCH ×2 (09:00→18:00)
[2022-04-03] MEDS: LEVETIRACETAM 500MG PREMIX 100 ML IV SCH ×2 (09:00→20:34)
[2022-04-03] MEDS: COLCHICINE 0.6MG TABLET PO SCH (09:00)
[2022-04-03 09:11] LABS: ALDOLASE 16.1 U/L (3.3-10.3)
[2022-04-03 11:27] LABS: HEMATOCRIT. 24.1 % (42.0-52.0); HEMOGLOBIN. 7.5 g/dL (14.0-18.0); MEAN CORPUSCULAR HEMOGLOBIN 25.3 pg (28.0-32.0); MEAN CORPUSCULAR VOLUME 81.1 fL (80.0-94.0); MEAN PLATELET VOLUME 8.9 fl (7.4-10.4); PLATELET 91 x1000/uL (130-400); RED BLOOD CELL COUNT 2.97 mill/uL (4.7-6.1); RED CELL DISTRIBUTION WIDTH 21.1 % (11.6-14.6)
[2022-04-03] MEDS: COLISTIMETHATE SODIUM 150MG/VIAL INH SCH ×2 (12:25→20:30)
[2022-04-03 12:29] LABS: PHOSPHORUS 3.2 mg/dL (2.5-4.9)
[2022-04-03 12:32] LABS: PLATELET ESTIMATE DECREASED
[2022-04-03] MEDS ORDERED: SODIUM POLYSTYRENE SULFONATE 15 G/60 ML BOT PO NR ×2 (13:00→21:30)
[2022-04-03 13:06] LABS: ANTI-CARDIOLIPIN AB IGA < 9 APL U/mL (0-11); ANTI-CARDIOLIPIN AB IGM 13 MPL U/mL (0-12)
[2022-04-03 15:09] LABS: ANGIOTENSION CONVERTING ENZYME 55 U/L (14-82)
[2022-04-03] MEDS: FUROSEMIDE 20MG/2ML VIAL IVP SCH (15:21)
[2022-04-03] MEDS ORDERED: VANCOMYCIN 750MG PREMIX 150 ML IV SCH (21:00)
[2022-04-04] VITALS (10 sets, daily range): BP systolic 91–124; BP diastolic 65–83
[2022-04-04] MEDS: ONDANSETRON HCL 4MG/2ML INJ IV PRN ×2 (01:02→07:36)
[2022-04-04] MEDS: OXYCODONE HCL/ACETAMINOPHEN 5/325MG TABLET PO PRN ×4 (02:03→18:59)
[2022-04-04] MEDS: IPRATROPIUM/ALBUTEROL 0.5-3(2.5)MG/3ML NEB HHN SCH ×5 (04:08→20:01)
[2022-04-04 06:52] LABS: PHOSPHORUS 3.1 mg/dL (2.5-4.9)
[2022-04-04 06:54] LABS: HEMATOCRIT. 22.8 % (42.0-52.0); HEMOGLOBIN. 7.2 g/dL (14.0-18.0); MEAN CORPUSCULAR HEMOGLOBIN 25.4 pg (28.0-32.0); MEAN CORPUSCULAR VOLUME 80.6 fL (80.0-94.0); MEAN PLATELET VOLUME 8.4 fl (7.4-10.4); PLATELET 115 x1000/uL (130-400); RED BLOOD CELL COUNT 2.82 mill/uL (4.7-6.1); RED CELL DISTRIBUTION WIDTH 21.2 % (11.6-14.6)
[2022-04-04] MEDS: FUROSEMIDE 20MG/2ML VIAL IVP SCH (08:05)
[2022-04-04] MEDS: LEVETIRACETAM 500MG PREMIX 100 ML IV SCH ×2 (08:05→20:00)
[2022-04-04] MEDS: COLCHICINE 0.6MG TABLET PO SCH (08:05)
[2022-04-04] MEDS: PANTOPRAZOLE SODIUM 40 MG/VIAL IV SCH (08:05)
[2022-04-04] MEDS: DOCUSATE SODIUM 100MG CAPSULE PO SCH ×3 (08:05→16:24)
[2022-04-04] MEDS: PREDNISONE 20MG TABLET PO SCH ×2 (08:05→17:25)
[2022-04-04 08:33] LABS: PLATELET ESTIMATE SLIGHTLY DECREASED
[2022-04-04] MEDS ORDERED: SODIUM POLYSTYRENE SULFONATE 15 G/60 ML BOT PO NR (09:30)
[2022-04-04] MEDS: MEROPENEM 1,000 MG in SODIUM CHLORIDE 0.9% 100 ML IV SCH ×2 (10:53→23:37)
[2022-04-04] MEDS: COLISTIMETHATE SODIUM 150MG/VIAL INH SCH ×3 (13:03→20:01)
[2022-04-04 17:44] LABS: INR 1.3; PARTIAL THROMBOPLASTIN TIME 38.3 sec (23.4-31.0); PROTHROMBIN TIME 13.4 sec (9.6-11.0)
[2022-04-05] VITALS (7 sets, daily range): BP systolic 108–126; BP diastolic 59–82
[2022-04-05] MEDS: IPRATROPIUM/ALBUTEROL 0.5-3(2.5)MG/3ML NEB HHN SCH ×6 (03:37→20:06)
[2022-04-05] MEDS: OXYCODONE HCL/ACETAMINOPHEN 5/325MG TABLET PO PRN ×3 (04:44→17:30)
[2022-04-05 06:05] LABS: HEMATOCRIT. 25.3 % (42.0-52.0); HEMOGLOBIN. 7.7 g/dL (14.0-18.0); MEAN CORPUSCULAR HEMOGLOBIN 25.1 pg (28.0-32.0); MEAN CORPUSCULAR VOLUME 82.8 fL (80.0-94.0); MEAN PLATELET VOLUME 8.7 fl (7.4-10.4); PLATELET 157 x1000/uL (130-400); RED BLOOD CELL COUNT 3.05 mill/uL (4.7-6.1); RED CELL DISTRIBUTION WIDTH 22.3 % (11.6-14.6)
[2022-04-05 06:11] LABS: PHOSPHORUS 2.7 mg/dL (2.5-4.9)
[2022-04-05] MEDS: PANTOPRAZOLE SODIUM 40 MG/VIAL IV SCH (08:34)
[2022-04-05] MEDS: FUROSEMIDE 20MG/2ML VIAL IVP SCH (08:34)
[2022-04-05] MEDS: LEVETIRACETAM 500MG PREMIX 100 ML IV SCH (08:34)
[2022-04-05] MEDS: COLCHICINE 0.6MG TABLET PO SCH (08:34)
[2022-04-05] MEDS: DOCUSATE SODIUM 100MG CAPSULE PO SCH ×2 (08:35→16:44)
[2022-04-05] MEDS: PREDNISONE 20MG TABLET PO SCH ×2 (08:35→17:18)
[2022-04-05] MEDS: COLISTIMETHATE SODIUM 150MG/VIAL INH SCH ×2 (09:10→20:06)
[2022-04-05 10:55] LABS: PLATELET ESTIMATE NORMAL
[2022-04-05] MEDS: MEROPENEM 1,000 MG in SODIUM CHLORIDE 0.9% 100 ML IV SCH (11:17)
[2022-04-05] MEDS ORDERED: VANCOMYCIN 750MG PREMIX 150 ML IV SCH (21:00)
[2022-04-05] MEDS: LEVETIRACETAM 500MG TABLET PO SCH (21:02)
[2022-04-05] MEDS ORDERED: TEMAZEPAM 15MG CAPSULE PO PRN (22:45)
[2022-04-06] VITALS (7 sets, daily range): BP systolic 98–130; BP diastolic 60–80
[2022-04-06] MEDS: MEROPENEM 1,000 MG in SODIUM CHLORIDE 0.9% 100 ML IV SCH ×3 (00:01→23:19)
[2022-04-06] MEDS: OXYCODONE HCL/ACETAMINOPHEN 5/325MG TABLET PO PRN ×3 (00:28→17:32)
[2022-04-06] MEDS: IPRATROPIUM/ALBUTEROL 0.5-3(2.5)MG/3ML NEB HHN SCH ×6 (00:38→20:40)
[2022-04-06 06:50] LABS: HEMATOCRIT. 23.5 % (42.0-52.0); HEMOGLOBIN. 7.3 g/dL (14.0-18.0); MEAN CORPUSCULAR HEMOGLOBIN 25.3 pg (28.0-32.0); MEAN CORPUSCULAR VOLUME 81.9 fL (80.0-94.0); MEAN PLATELET VOLUME 8.2 fl (7.4-10.4); PLATELET 135 x1000/uL (130-400); RED BLOOD CELL COUNT 2.86 mill/uL (4.7-6.1); RED CELL DISTRIBUTION WIDTH 21.8 % (11.6-14.6)
[2022-04-06 07:44] LABS: PHOSPHORUS 3.4 mg/dL (2.5-4.9)
[2022-04-06] MEDS: PANTOPRAZOLE SODIUM 40 MG/VIAL IV SCH (09:09)
[2022-04-06] MEDS: LEVETIRACETAM 500MG TABLET PO SCH ×2 (09:09→21:09)
[2022-04-06] MEDS: PREDNISONE 20MG TABLET PO SCH (09:09)
[2022-04-06] MEDS: FUROSEMIDE 20MG/2ML VIAL IVP SCH (09:09)
[2022-04-06] MEDS: DOCUSATE SODIUM 100MG CAPSULE PO SCH ×2 (09:09→17:00)
[2022-04-06] MEDS: COLISTIMETHATE SODIUM 150MG/VIAL INH SCH ×3 (09:10→21:15)
[2022-04-06] MEDS: COLCHICINE 0.6MG TABLET PO SCH (09:13)
[2022-04-06] MEDS ORDERED: SODIUM POLYSTYRENE SULFONATE 15 G/60 ML BOT PO SCH (11:00)
[2022-04-06 11:56] LABS: PLATELET ESTIMATE NORMAL
[2022-04-06] MEDS ORDERED: MAGNESIUM 1 G PREMIX 100 ML IV SCH (12:00)
[2022-04-06] MEDS: HYDROMORPHONE HCL/PF 2MG/ML CPJ IV PRN (12:31)
[2022-04-06 13:07] LABS: ANTI-MYELOPEROXIDASE AB < 9.0 U/mL (0.0-9.0); ANTI-PROTEINASE 3 ABS < 3.5 U/mL (0.0-3.5); ATYPICAL P-ANCA <1:20 titer (Neg:<1:20); CYTOPLASMIC C-ANCA <1:20 titer (Neg:<1:20); PERINUCLEAR P-ANCA <1:20 titer (Neg:<1:20)
[2022-04-07] VITALS (9 sets, daily range): BP systolic 102–120; BP diastolic 54–69
[2022-04-07] MEDS: IPRATROPIUM/ALBUTEROL 0.5-3(2.5)MG/3ML NEB HHN SCH ×7 (00:42→23:57)
[2022-04-07] MEDS: HYDROMORPHONE HCL/PF 2MG/ML CPJ IV PRN ×3 (01:01→19:46)
[2022-04-07] MEDS: OXYCODONE HCL/ACETAMINOPHEN 5/325MG TABLET PO PRN ×4 (06:53→22:14)
[2022-04-07] MEDS: DOCUSATE SODIUM 100MG CAPSULE PO SCH ×2 (09:00→17:00)
[2022-04-07] MEDS: FUROSEMIDE 20MG/2ML VIAL IVP SCH (09:00)
[2022-04-07] MEDS: PANTOPRAZOLE SODIUM 40 MG/VIAL IV SCH (10:04)
[2022-04-07] MEDS: LEVETIRACETAM 500MG TABLET PO SCH ×2 (10:06→22:11)
[2022-04-07] MEDS: METOPROLOL TARTRATE 25MG TABLET PO SCH ×2 (10:06→22:12)
[2022-04-07 11:05] LABS: MEAN CORPUSCULAR HEMOGLOBIN 25.6 pg (28.0-32.0); MEAN CORPUSCULAR VOLUME 81.8 fL (80.0-94.0); MEAN PLATELET VOLUME 8.1 fl (7.4-10.4); PLATELET 127 x1000/uL (130-400); RED BLOOD CELL COUNT 2.63 mill/uL (4.7-6.1); RED CELL DISTRIBUTION WIDTH 21.9 % (11.6-14.6)
[2022-04-07 11:22] LABS: HEMATOCRIT. 21.5 % (42.0-52.0); HEMOGLOBIN. 6.7 g/dL (14.0-18.0)
[2022-04-07 11:23] LABS: PHOSPHORUS 2.8 mg/dL (2.5-4.9)
[2022-04-07 11:42] LABS: ATYPICAL LYMPHOCYTES 1
[2022-04-07 11:43] LABS: PLATELET ESTIMATE NORMAL
[2022-04-07] MEDS: COLISTIMETHATE SODIUM 150MG/VIAL INH SCH (11:48)
[2022-04-07] MEDS: COLCHICINE 0.6MG TABLET PO SCH (11:59)
[2022-04-07] MEDS: MEROPENEM 1,000 MG in SODIUM CHLORIDE 0.9% 100 ML IV SCH (12:00)
[2022-04-07] MEDS ORDERED: VANCOMYCIN 750MG PREMIX 150 ML IV SCH (13:00)
[2022-04-07 15:10] LABS: HLA CLASS 1 ANTIBODY Negative (Negative); IIb/IIIa ANTIBODY Negative (Negative); Ib/IX ANTIBODY Negative (Negative)
[2022-04-07] MEDS: VANCOMYCIN 1000MG/20ML ORAL SOLN PO SCH (18:24)
[2022-04-07 21:41] LABS: HEMATOCRIT 27.9 % (42.0-52.0); HEMOGLOBIN 8.9 g/dL (14.0-18.0)
[2022-04-08] VITALS: BP 113/65
[2022-04-08] MEDS: MEROPENEM 1,000 MG in SODIUM CHLORIDE 0.9% 100 ML IV SCH (00:33)
[2022-04-08] MEDS: HYDROMORPHONE HCL/PF 2MG/ML CPJ IV PRN ×4 (02:04→20:32)
[2022-04-08] MEDS: VANCOMYCIN 1000MG/20ML ORAL SOLN PO SCH ×4 (02:22→17:54)
[2022-04-08 04:00] VITALS: BP 106/58
[2022-04-08] MEDS: IPRATROPIUM/ALBUTEROL 0.5-3(2.5)MG/3ML NEB HHN SCH ×5 (04:08→20:40)
[2022-04-08] MEDS: ACETAMINOPHEN 650MG/20.3ML UDC GT PRN (06:19)
[2022-04-08 07:21] LABS: HEMATOCRIT. 25.4 % (42.0-52.0); HEMOGLOBIN. 8.1 g/dL (14.0-18.0); MEAN CORPUSCULAR HEMOGLOBIN 26.1 pg (28.0-32.0); MEAN CORPUSCULAR VOLUME 81.9 fL (80.0-94.0); MEAN PLATELET VOLUME 8.9 fl (7.4-10.4); PLATELET 117 x1000/uL (130-400); RED CELL DISTRIBUTION WIDTH 20.5 % (11.6-14.6)
[2022-04-08] MEDS ORDERED: ACETAMINOPHEN 325MG TABLET PO PRN (07:30)
[2022-04-08 08:00] VITALS: BP 108/62
[2022-04-08 08:01] LABS: PHOSPHORUS 3.7 mg/dL (2.5-4.9)
[2022-04-08] MEDS: COLISTIMETHATE SODIUM 150MG/VIAL INH SCH ×2 (08:28→20:40)
[2022-04-08] MEDS: COLCHICINE 0.6MG TABLET PO SCH (08:50)
[2022-04-08] MEDS: LEVETIRACETAM 500MG TABLET PO SCH ×2 (08:50→20:31)
[2022-04-08] MEDS: PANTOPRAZOLE SODIUM 40 MG/VIAL IV SCH (08:50)
[2022-04-08] MEDS: METOPROLOL TARTRATE 25MG TABLET PO SCH ×2 (08:50→20:31)
[2022-04-08] MEDS: OXYCODONE HCL/ACETAMINOPHEN 5/325MG TABLET PO PRN (10:06)
[2022-04-08] MEDS: DOCUSATE SODIUM 100MG CAPSULE PO SCH ×2 (10:41→17:00)
[2022-04-08 12:00] VITALS: BP 103/61
[2022-04-08] MEDS: ONDANSETRON HCL 4MG/2ML INJ IV PRN (12:11)
[2022-04-08 12:22] LABS: PLATELET ESTIMATE SLIGHTLY DECREASED
[2022-04-08 16:00] VITALS: BP 102/60
[2022-04-08 17:06] LABS: ANA IFA Negative (.)
[2022-04-08 20:00] VITALS: BP 110/69
[2022-04-09] VITALS (7 sets, daily range): BP systolic 93–108; BP diastolic 53–68
[2022-04-09] MEDS: IPRATROPIUM/ALBUTEROL 0.5-3(2.5)MG/3ML NEB HHN SCH ×6 (00:24→20:24)
[2022-04-09] MEDS: OXYCODONE HCL/ACETAMINOPHEN 5/325MG TABLET PO PRN ×3 (00:44→12:58)
[2022-04-09] MEDS: VANCOMYCIN 1000MG/20ML ORAL SOLN PO SCH ×4 (00:46→17:28)
[2022-04-09] MEDS: HYDROMORPHONE HCL/PF 2MG/ML CPJ IV PRN ×4 (02:41→20:18)
[2022-04-09] MEDS: COLISTIMETHATE SODIUM 150MG/VIAL INH SCH ×2 (07:49→20:34)
[2022-04-09] MEDS: METOPROLOL TARTRATE 25MG TABLET PO SCH ×2 (09:00→21:00)
[2022-04-09] MEDS: PANTOPRAZOLE SODIUM 40 MG/VIAL IV SCH (09:48)
[2022-04-09] MEDS: COLCHICINE 0.6MG TABLET PO SCH (09:49)
[2022-04-09] MEDS: LEVETIRACETAM 500MG TABLET PO SCH ×2 (09:49→20:11)
[2022-04-09] MEDS: DOCUSATE SODIUM 100MG CAPSULE PO SCH ×2 (09:49→17:27)
[2022-04-09 10:20] LABS: HEMATOCRIT. 24.8 % (42.0-52.0); HEMOGLOBIN. 7.7 g/dL (14.0-18.0); MEAN CORPUSCULAR HEMOGLOBIN 25.5 pg (28.0-32.0); MEAN CORPUSCULAR VOLUME 81.8 fL (80.0-94.0); MEAN PLATELET VOLUME 9.1 fl (7.4-10.4); PLATELET 114 x1000/uL (130-400); RED BLOOD CELL COUNT 3.03 mill/uL (4.7-6.1); RED CELL DISTRIBUTION WIDTH 20.7 % (11.6-14.6)
[2022-04-09 10:36] LABS: PHOSPHORUS 4.3 mg/dL (2.5-4.9)
[2022-04-09 11:43] LABS: PLATELET ESTIMATE DECREASED
[2022-04-10] MEDS: HYDROMORPHONE HCL/PF 2MG/ML CPJ IV PRN ×6 (00:01→22:39)
[2022-04-10] MEDS: IPRATROPIUM/ALBUTEROL 0.5-3(2.5)MG/3ML NEB HHN SCH ×6 (01:01→20:22)
[2022-04-10 04:05] VITALS: BP 105/63
[2022-04-10] MEDS: ONDANSETRON HCL 4MG/2ML INJ IV PRN (04:06)
[2022-04-10] MEDS: VANCOMYCIN 1000MG/20ML ORAL SOLN PO SCH ×4 (06:01→18:50)
[2022-04-10 07:32] LABS: CHLORIDE 100 mEq/L (98-107)
[2022-04-10 07:41] LABS: PHOSPHORUS 4.4 mg/dL (2.5-4.9)
[2022-04-10 08:00] VITALS: BP 103/62
[2022-04-10] MEDS: LEVETIRACETAM 500MG TABLET PO SCH ×2 (09:12→21:24)
[2022-04-10] MEDS: COLCHICINE 0.6MG TABLET PO SCH (09:12)
[2022-04-10] MEDS: PANTOPRAZOLE SODIUM 40 MG/VIAL IV SCH (09:12)
[2022-04-10] MEDS: COLISTIMETHATE SODIUM 150MG/VIAL INH SCH ×3 (09:12→20:36)
[2022-04-10] MEDS: DOCUSATE SODIUM 100MG CAPSULE PO SCH ×2 (09:13→18:11)
[2022-04-10] MEDS: METOPROLOL TARTRATE 25MG TABLET PO SCH ×2 (09:13→21:00)
[2022-04-10 10:46] LABS: HEMATOCRIT. 23.1 % (42.0-52.0); HEMOGLOBIN. 7.3 g/dL (14.0-18.0); MEAN CORPUSCULAR HEMOGLOBIN 25.7 pg (28.0-32.0); MEAN PLATELET VOLUME 9.4 fl (7.4-10.4); PLATELET 110 x1000/uL (130-400); RED BLOOD CELL COUNT 2.85 mill/uL (4.7-6.1); RED CELL DISTRIBUTION WIDTH 20.8 % (11.6-14.6)
[2022-04-10 10:48] LABS: MEAN CORPUSCULAR VOLUME 81.2 fL (80.0-94.0)
[2022-04-10 12:00] VITALS: BP 101/60
[2022-04-10 12:11] LABS: PLATELET ESTIMATE DECREASED
[2022-04-10] MEDS: SODIUM CHLORIDE 0.9% 1,000 ML IV SCH (14:53)
[2022-04-10 16:00] VITALS: BP 104/58
[2022-04-10 20:00] VITALS: BP 99/61
[2022-04-10] MEDS ORDERED: EPOETIN ALFA-EPBX 10,000 UNIT/ML VIAL SUBCUT NR (21:00)
[2022-04-11] VITALS (8 sets, daily range): BP systolic 95–116; BP diastolic 56–74
[2022-04-11] MEDS: HYDROCODONE/ACETAMINOPHEN 10/325MG TABLET PO PRN ×3 (00:15→14:14)
[2022-04-11] MEDS: IPRATROPIUM/ALBUTEROL 0.5-3(2.5)MG/3ML NEB HHN SCH ×6 (00:36→21:44)
[2022-04-11] MEDS: ONDANSETRON HCL 4MG/2ML INJ IV PRN ×3 (01:50→16:52)
[2022-04-11] MEDS: HYDROMORPHONE HCL/PF 2MG/ML CPJ IV PRN ×4 (02:55→22:03)
[2022-04-11] MEDS: SODIUM CHLORIDE 0.9% 1,000 ML IV SCH ×3 (03:58→21:57)
[2022-04-11] MEDS: VANCOMYCIN 1000MG/20ML ORAL SOLN PO SCH ×4 (06:16→17:10)
[2022-04-11] MEDS: COLISTIMETHATE SODIUM 150MG/VIAL INH SCH (07:30)
[2022-04-11 07:58] LABS: BASOPHILS % 0.2 % (0.0-2.0); EOSINOPHILS % 0.3 % (0.0-5.0); LYMPHOCYTES % 7.1 % (20.0-50.0); MEAN CORPUSCULAR HEMOGLOBIN 26.4 pg (28.0-32.0); MEAN CORPUSCULAR VOLUME 82.7 fL (80.0-94.0); MEAN PLATELET VOLUME 9.2 fl (7.4-10.4); MONOCYTES % 7.4 % (2.0-8.0); PLATELET 113 x1000/uL (130-400); RED BLOOD CELL COUNT 2.62 mill/uL (4.7-6.1); RED CELL DISTRIBUTION WIDTH 20.6 % (11.6-14.6)
[2022-04-11] MEDS: METOPROLOL TARTRATE 25MG TABLET PO SCH ×2 (07:58→21:54)
[2022-04-11] MEDS: DOCUSATE SODIUM 100MG CAPSULE PO SCH ×2 (07:59→16:52)
[2022-04-11] MEDS: COLCHICINE 0.6MG TABLET PO SCH (08:00)
[2022-04-11] MEDS: PANTOPRAZOLE SODIUM 40 MG/VIAL IV SCH (08:00)
[2022-04-11 08:11] LABS: PHOSPHORUS 4.8 mg/dL (2.5-4.9)
[2022-04-11 08:12] LABS: HEMATOCRIT. 21.7 % (42.0-52.0); HEMOGLOBIN. 6.9 g/dL (14.0-18.0)
[2022-04-11] MEDS: LEVETIRACETAM 500MG TABLET PO SCH ×2 (10:55→21:54)
[2022-04-11 20:06] LABS: HEMATOCRIT 28.1 % (42.0-52.0); HEMOGLOBIN 8.9 g/dL (14.0-18.0)
[2022-04-12] VITALS: BP 109/73
[2022-04-12] MEDS: VANCOMYCIN 1000MG/20ML ORAL SOLN PO SCH ×4 (00:29→18:11)
[2022-04-12] MEDS: HYDROCODONE/ACETAMINOPHEN 10/325MG TABLET PO PRN ×3 (00:44→18:10)
[2022-04-12] MEDS: IPRATROPIUM/ALBUTEROL 0.5-3(2.5)MG/3ML NEB HHN SCH ×5 (02:01→21:55)
[2022-04-12] MEDS: HYDROMORPHONE HCL/PF 2MG/ML CPJ IV PRN ×5 (02:16→20:19)
[2022-04-12 04:00] VITALS: BP 106/78
[2022-04-12] MEDS: OXYCODONE HCL 5MG TABLET PO PRN ×2 (05:24→13:32)
[2022-04-12 06:35] LABS: HEMATOCRIT. 28.4 % (42.0-52.0); HEMOGLOBIN. 9.1 g/dL (14.0-18.0); MEAN CORPUSCULAR HEMOGLOBIN 26.6 pg (28.0-32.0); MEAN CORPUSCULAR VOLUME 82.7 fL (80.0-94.0); MEAN PLATELET VOLUME 9.3 fl (7.4-10.4); PLATELET 104 x1000/uL (130-400); RED BLOOD CELL COUNT 3.43 mill/uL (4.7-6.1); RED CELL DISTRIBUTION WIDTH 19.6 % (11.6-14.6)
[2022-04-12 07:20] LABS: PHOSPHORUS 5.6 mg/dL (2.5-4.9)
[2022-04-12 08:00] VITALS: BP 117/68
[2022-04-12] MEDS: PANTOPRAZOLE SODIUM 40 MG/VIAL IV SCH (08:48)
[2022-04-12] MEDS: DOCUSATE SODIUM 100MG CAPSULE PO SCH ×3 (08:49→17:00)
[2022-04-12] MEDS: LEVETIRACETAM 500MG TABLET PO SCH ×2 (08:49→20:18)
[2022-04-12] MEDS: METOPROLOL TARTRATE 25MG TABLET PO SCH ×2 (08:50→20:18)
[2022-04-12] MEDS ORDERED: SODIUM POLYSTYRENE SULFONATE 15 G/60 ML BOT PO SCH (09:00)
[2022-04-12 10:43] LABS: PLATELET ESTIMATE SLIGHTLY DECREASED
[2022-04-12] MEDS: MAGNESIUM OXIDE 400MG TABLET PO SCH (10:52)
[2022-04-12] MEDS: SODIUM BICARBONATE 650 MG TABLET PO SCH ×2 (10:52→20:18)
[2022-04-12 12:15] VITALS: BP 104/60
[2022-04-12] MEDS: SODIUM BICARBONATE 150 MEQ in DEXTROSE 5% WATER 1,000 ML IV SCH ×2 (13:31→21:23)
[2022-04-12 16:15] VITALS: BP 102/61
[2022-04-12] MEDS: MEROPENEM 1,000 MG in SODIUM CHLORIDE 0.9% 100 ML IV SCH (20:46)
[2022-04-12] MEDS: COLISTIMETHATE SODIUM 150MG/VIAL INH SCH (21:55)
[2022-04-13] VITALS: BP 103/64
[2022-04-13] MEDS: IPRATROPIUM/ALBUTEROL 0.5-3(2.5)MG/3ML NEB HHN SCH ×6 (00:19→21:11)
[2022-04-13] MEDS: VANCOMYCIN 1000MG/20ML ORAL SOLN PO SCH ×4 (00:47→17:04)
[2022-04-13] MEDS: HYDROMORPHONE HCL/PF 2MG/ML CPJ IV PRN ×5 (00:54→20:15)
[2022-04-13] MEDS: SODIUM BICARBONATE 150 MEQ in DEXTROSE 5% WATER 1,000 ML IV SCH ×2 (02:43→20:34)
[2022-04-13] MEDS: HYDROCODONE/ACETAMINOPHEN 10/325MG TABLET PO PRN ×2 (03:02→13:49)
[2022-04-13 04:00] VITALS: BP 105/65
[2022-04-13 08:00] VITALS: BP 93/57
[2022-04-13 08:30] LABS: HEMATOCRIT. 27.2 % (42.0-52.0); HEMOGLOBIN. 8.7 g/dL (14.0-18.0); MEAN CORPUSCULAR HEMOGLOBIN 26.2 pg (28.0-32.0); MEAN CORPUSCULAR VOLUME 82.1 fL (80.0-94.0); MEAN PLATELET VOLUME 9.8 fl (7.4-10.4); PLATELET 91 x1000/uL (130-400); RED BLOOD CELL COUNT 3.32 mill/uL (4.7-6.1); RED CELL DISTRIBUTION WIDTH 19.8 % (11.6-14.6)
[2022-04-13] MEDS: COLISTIMETHATE SODIUM 150MG/VIAL INH SCH ×2 (08:42→21:11)
[2022-04-13 08:52] LABS: PHOSPHORUS 4.5 mg/dL (2.5-4.9)
[2022-04-13] MEDS: PANTOPRAZOLE SODIUM 40 MG/VIAL IV SCH (08:59)
[2022-04-13] MEDS: SODIUM BICARBONATE 650 MG TABLET PO SCH ×2 (08:59→20:27)
[2022-04-13] MEDS: ONDANSETRON HCL 4MG/2ML INJ IV PRN (09:00)
[2022-04-13] MEDS: DOCUSATE SODIUM 100MG CAPSULE PO SCH ×2 (09:00→17:04)
[2022-04-13] MEDS: MAGNESIUM OXIDE 400MG TABLET PO SCH (09:00)
[2022-04-13] MEDS: LEVETIRACETAM 500MG TABLET PO SCH ×2 (09:00→20:27)
[2022-04-13] MEDS: METOPROLOL TARTRATE 25MG TABLET PO SCH ×2 (09:00→20:28)
[2022-04-13] MEDS: OXYCODONE HCL 5MG TABLET PO PRN (09:00)
[2022-04-13 10:42] LABS: PLATELET ESTIMATE DECREASED
[2022-04-13 12:00] VITALS: BP 93/57
[2022-04-13 16:00] VITALS: BP 96/60
[2022-04-13] MEDS: MEROPENEM 1,000 MG in SODIUM CHLORIDE 0.9% 100 ML IV SCH (16:08)
[2022-04-13 20:00] VITALS: BP 116/70
[2022-04-14] VITALS: BP 102/60
[2022-04-14] MEDS: HYDROMORPHONE HCL/PF 2MG/ML CPJ IV PRN ×4 (00:29→22:23)
[2022-04-14] MEDS: VANCOMYCIN 1000MG/20ML ORAL SOLN PO SCH ×4 (00:30→18:02)
[2022-04-14] MEDS: IPRATROPIUM/ALBUTEROL 0.5-3(2.5)MG/3ML NEB HHN SCH ×6 (01:13→20:10)
[2022-04-14] MEDS: HYDROCODONE/ACETAMINOPHEN 10/325MG TABLET PO PRN ×2 (01:43→14:06)
[2022-04-14 04:00] VITALS: BP 102/61
[2022-04-14 06:12] LABS: HEMATOCRIT. 26.3 % (42.0-52.0); HEMOGLOBIN. 8.5 g/dL (14.0-18.0); MEAN CORPUSCULAR HEMOGLOBIN 26.3 pg (28.0-32.0); MEAN CORPUSCULAR VOLUME 81.6 fL (80.0-94.0); MEAN PLATELET VOLUME 10.1 fl (7.4-10.4); PLATELET 79 x1000/uL (130-400); RED BLOOD CELL COUNT 3.23 mill/uL (4.7-6.1); RED CELL DISTRIBUTION WIDTH 19.6 % (11.6-14.6)
[2022-04-14 08:00] VITALS: BP 105/67
[2022-04-14] MEDS: METOPROLOL TARTRATE 25MG TABLET PO SCH ×2 (09:00→20:37)
[2022-04-14] MEDS: PANTOPRAZOLE SODIUM 40 MG/VIAL IV SCH (09:44)
[2022-04-14] MEDS: MAGNESIUM OXIDE 400MG TABLET PO SCH (09:44)
[2022-04-14] MEDS: DOCUSATE SODIUM 100MG CAPSULE PO SCH ×2 (09:44→16:31)
[2022-04-14] MEDS: LEVETIRACETAM 500MG TABLET PO SCH ×2 (09:44→21:38)
[2022-04-14] MEDS ORDERED: SODIUM CHLORIDE 0.9% 500 ML IV ONE ×2 (10:15)
[2022-04-14] MEDS: SODIUM BICARBONATE 150 MEQ in DEXTROSE 5% WATER 1,000 ML IV SCH (10:27)
[2022-04-14 12:00] VITALS: BP 105/61
[2022-04-14] MEDS: COLISTIMETHATE SODIUM 150MG/VIAL INH SCH ×2 (14:10→20:10)
[2022-04-14 16:00] VITALS: BP 101/68
[2022-04-14] MEDS ORDERED: HYDROMORPHONE HCL/PF 2MG/ML CPJ IV PRN (16:15)
[2022-04-14] MEDS ORDERED: IPRATROPIUM/ALBUTEROL 0.5-3(2.5)MG/3ML NEB HHN PRN ×2 (16:30)
[2022-04-14] MEDS: MEROPENEM 1,000 MG in SODIUM CHLORIDE 0.9% 100 ML IV SCH (16:31)
[2022-04-14 20:00] VITALS: BP 103/65
[2022-04-15] VITALS: BP 105/63
[2022-04-15] MEDS: IPRATROPIUM/ALBUTEROL 0.5-3(2.5)MG/3ML NEB HHN SCH ×5 (00:12→20:29)
[2022-04-15] MEDS: VANCOMYCIN 1000MG/20ML ORAL SOLN PO SCH ×4 (01:25→17:10)
[2022-04-15] MEDS: ONDANSETRON HCL 4MG/2ML INJ IV PRN ×3 (03:06→21:11)
[2022-04-15] MEDS: HYDROMORPHONE HCL/PF 2MG/ML CPJ IV PRN ×5 (03:07→21:24)
[2022-04-15 04:00] VITALS: BP 101/59
[2022-04-15 07:08] LABS: PLATELET ESTIMATE DECREASED
[2022-04-15 08:00] VITALS: BP 101/66
[2022-04-15 08:15] LABS: BG BASE EXCESS -0.4 mmol/L (-2.0-2.0); BG CARBOXYHEMOGLOBIN 0.3 % (0.5-1.5); BG DEOXYHEMOGLOBIN 2.5 % (0.0-5.0); BG FRACTION INSPIRED OXYGEN 21; BG HCO3 ACT 22.8 mmol/L (22.0-26.0); BG METHEMOGLOBIN 0.3 % (0.0-1.5); BG OXYGEN SATURATION 97.5 % (92.0-98.5); BG OXYHEMOGLOBIN 96.9 % (94.0-97.0); BG PCO2 31.7 mmHg (35.0-45.0); BG PH 7.475 (7.350-7.450); BG PO2 98.7 mmHg (75.0-100.0); BG SAMPLE SITE RIGHT BRACHIAL; BG TOTAL HEMOGLOBIN 9.2 g/dL (12.0-18.0); BG VENT MODE ROOM AIR
[2022-04-15 08:26] LABS: HEMATOCRIT. 27.1 % (42.0-52.0); HEMOGLOBIN. 8.5 g/dL (14.0-18.0); MEAN CORPUSCULAR VOLUME 82.7 fL (80.0-94.0); MEAN PLATELET VOLUME 10.5 fl (7.4-10.4); PLATELET 83 x1000/uL (130-400); RED BLOOD CELL COUNT 3.27 mill/uL (4.7-6.1); RED CELL DISTRIBUTION WIDTH 19.9 % (11.6-14.6)
[2022-04-15] MEDS: DOCUSATE SODIUM 100MG CAPSULE PO SCH ×2 (08:31→17:09)
[2022-04-15] MEDS: PANTOPRAZOLE SODIUM 40 MG/VIAL IV SCH (08:31)
[2022-04-15] MEDS: LEVETIRACETAM 500MG TABLET PO SCH ×2 (08:32→21:25)
[2022-04-15] MEDS: MAGNESIUM OXIDE 400MG TABLET PO SCH (08:32)
[2022-04-15 08:38] LABS: PHOSPHORUS 5.2 mg/dL (2.5-4.9)
[2022-04-15] MEDS: METOPROLOL TARTRATE 25MG TABLET PO SCH ×2 (09:00→20:02)
[2022-04-15 09:50] LABS: INR 1.4; PARTIAL THROMBOPLASTIN TIME 39.6 sec (23.4-31.0); PROTHROMBIN TIME 14.6 sec (9.6-11.0)
[2022-04-15] MEDS: SODIUM BICARBONATE 150 MEQ in DEXTROSE 5% WATER 1,000 ML IV SCH (10:41)
[2022-04-15] MEDS: OXYCODONE HCL 5MG TABLET PO PRN (10:42)
[2022-04-15] MEDS ORDERED: SODIUM BICARBONATE 4% (2.4MEQ) 5ML VIAL IV ONE (10:51)
[2022-04-15] MEDS ORDERED: LIDOCAINE HCL/PF 1% 10 MG/ML 5ML VIAL ONE (10:51)
[2022-04-15 12:00] VITALS: BP 92/55
[2022-04-15 14:16] LABS: PLATELET ESTIMATE DECREASED
[2022-04-15 16:00] VITALS: BP 93/48
[2022-04-15] MEDS: AZITHROMYCIN 500 MG TABLET PO SCH (17:09)
[2022-04-15] MEDS: MEROPENEM 1,000 MG in SODIUM CHLORIDE 0.9% 100 ML IV SCH (17:10)
[2022-04-15] MEDS: HYDROCODONE/ACETAMINOPHEN 10/325MG TABLET PO PRN (19:04)
[2022-04-15 20:00] VITALS: BP 91/53
[2022-04-15] MEDS: COLISTIMETHATE SODIUM 150MG/VIAL INH SCH (20:28)
[2022-04-16] VITALS (7 sets, daily range): BP systolic 87–99; BP diastolic 44–62
[2022-04-16] MEDS: VANCOMYCIN 1000MG/20ML ORAL SOLN PO SCH ×4 (00:11→18:06)
[2022-04-16] MEDS: IPRATROPIUM/ALBUTEROL 0.5-3(2.5)MG/3ML NEB HHN SCH ×6 (00:13→20:23)
[2022-04-16] MEDS: ONDANSETRON HCL 4MG/2ML INJ IV PRN (01:26)
[2022-04-16] MEDS: HYDROMORPHONE HCL/PF 2MG/ML CPJ IV PRN ×5 (01:39→18:14)
[2022-04-16 07:31] LABS: HEMATOCRIT. 26.8 % (42.0-52.0); HEMOGLOBIN. 8.6 g/dL (14.0-18.0); MEAN CORPUSCULAR HEMOGLOBIN 26.1 pg (28.0-32.0); MEAN CORPUSCULAR VOLUME 81.4 fL (80.0-94.0); PLATELET 71 x1000/uL (130-400); RED BLOOD CELL COUNT 3.29 mill/uL (4.7-6.1); RED CELL DISTRIBUTION WIDTH 19.9 % (11.6-14.6)
[2022-04-16 07:38] LABS: INR 1.3; PARTIAL THROMBOPLASTIN TIME 41.9 sec (23.4-31.0)
[2022-04-16 08:08] LABS: PHOSPHORUS 5.5 mg/dL (2.5-4.9)
[2022-04-16] MEDS: METOPROLOL TARTRATE 25MG TABLET PO SCH (09:00)
[2022-04-16] MEDS: COLISTIMETHATE SODIUM 150MG/VIAL INH SCH ×2 (09:45→20:23)
[2022-04-16] MEDS: LEVETIRACETAM 500MG TABLET PO SCH ×2 (09:46→21:13)
[2022-04-16] MEDS: AZITHROMYCIN 500 MG TABLET PO SCH (09:47)
[2022-04-16] MEDS: PANTOPRAZOLE SODIUM 40 MG/VIAL IV SCH (09:47)
[2022-04-16] MEDS: DOCUSATE SODIUM 100MG CAPSULE PO SCH ×2 (09:47→18:06)
[2022-04-16] MEDS: MAGNESIUM OXIDE 400MG TABLET PO SCH (09:47)
[2022-04-16] MEDS: MIDODRINE HCL 2.5MG TABLET PO SCH ×3 (11:57→18:06)
[2022-04-16 13:33] LABS: PLATELET ESTIMATE DECREASED
[2022-04-16] MEDS: SODIUM BICARBONATE 150 MEQ in DEXTROSE 5% WATER 1,000 ML IV SCH (13:56)
[2022-04-16] MEDS ORDERED: SODIUM POLYSTYRENE SULFONATE 15 G/60 ML BOT PO NR (15:00)
[2022-04-16 15:30] LABS: BG CARBOXYHEMOGLOBIN 0.1 % (0.5-1.5); BG DEOXYHEMOGLOBIN 2.8 % (0.0-5.0); BG FRACTION INSPIRED OXYGEN 21; BG METHEMOGLOBIN 0.5 % (0.0-1.5); BG OXYGEN SATURATION 97.2 % (92.0-98.5); BG OXYHEMOGLOBIN 96.6 % (94.0-97.0); BG PH 7.482 (7.350-7.450); BG PO2 91.2 mmHg (75.0-100.0); BG SAMPLE SITE RIGHT RADIAL; BG VENT MODE ROOM AIR
[2022-04-16 17:43] LABS: HEPATITIS B SURFACE ANTIGEN NEGATIVE
[2022-04-16] MEDS: MEROPENEM 1,000 MG in SODIUM CHLORIDE 0.9% 100 ML IV SCH (18:10)
[2022-04-16] MEDS: NYSTATIN 100,000 UNITS/ML 5ML UDC SSW SCH (18:10)
[2022-04-16] MEDS ORDERED: NALOXONE HCL 0.4MG/ML VIAL IV PRN (21:15)
[2022-04-17 00:10] VITALS: BP 104/60
[2022-04-17] MEDS: VANCOMYCIN 1000MG/20ML ORAL SOLN PO SCH ×5 (00:12→23:59)
[2022-04-17] MEDS: HYDROMORPHONE HCL/PF 2MG/ML CPJ IV PRN ×6 (00:13→23:02)
[2022-04-17] MEDS: NYSTATIN 100,000 UNITS/ML 5ML UDC SSW SCH ×5 (00:23→23:59)
[2022-04-17 04:06] VITALS: BP 108/63
[2022-04-17] MEDS: IPRATROPIUM/ALBUTEROL 0.5-3(2.5)MG/3ML NEB HHN SCH ×5 (04:32→21:07)
[2022-04-17 06:57] LABS: HEMATOCRIT. 26.7 % (42.0-52.0); HEMOGLOBIN. 8.4 g/dL (14.0-18.0); MEAN CORPUSCULAR HEMOGLOBIN 26.1 pg (28.0-32.0); MEAN CORPUSCULAR VOLUME 82.9 fL (80.0-94.0); MEAN PLATELET VOLUME 10.5 fl (7.4-10.4); PLATELET 67 x1000/uL (130-400); RED BLOOD CELL COUNT 3.22 mill/uL (4.7-6.1); RED CELL DISTRIBUTION WIDTH 19.6 % (11.6-14.6)
[2022-04-17 07:17] LABS: INR 1.4; PROTHROMBIN TIME 14.2 sec (9.6-11.0)
[2022-04-17 07:38] LABS: PHOSPHORUS 6.1 mg/dL (2.5-4.9)
[2022-04-17 08:00] VITALS: BP 107/61
[2022-04-17] MEDS ORDERED: LIDOCAINE HCL 1% 10 MG/ML 10ML VIAL ONE (09:04)
[2022-04-17 09:12] LABS: PLATELET ESTIMATE DECREASED
[2022-04-17] MEDS: MAGNESIUM OXIDE 400MG TABLET PO SCH (09:24)
[2022-04-17] MEDS: AZITHROMYCIN 500 MG TABLET PO SCH (09:24)
[2022-04-17] MEDS: PANTOPRAZOLE SODIUM 40 MG/VIAL IV SCH (09:24)
[2022-04-17] MEDS: DOCUSATE SODIUM 100MG CAPSULE PO SCH ×2 (09:24→18:03)
[2022-04-17] MEDS: OXYCODONE HCL 5MG TABLET PO PRN (09:24)
[2022-04-17] MEDS: LEVETIRACETAM 500MG TABLET PO SCH ×2 (09:25→18:03)
[2022-04-17] MEDS: COLISTIMETHATE SODIUM 150MG/VIAL INH SCH ×3 (09:29→21:07)
[2022-04-17] MEDS: MIDODRINE HCL 2.5MG TABLET PO SCH ×3 (11:38→18:14)
[2022-04-17] MEDS: SODIUM BICARBONATE 150 MEQ in DEXTROSE 5% WATER 1,000 ML IV SCH (11:42)
[2022-04-17 12:00] VITALS: BP 103/58
[2022-04-17 16:00] VITALS: BP 112/62
[2022-04-17] MEDS ORDERED: LEVOTHYROXINE SODIUM 50MCG TABLET PO SCH (16:15)
[2022-04-17] MEDS: MEROPENEM 1,000 MG in SODIUM CHLORIDE 0.9% 100 ML IV SCH (18:13)
[2022-04-17 20:00] VITALS: BP 96/57
[2022-04-18] VITALS: BP 109/67
[2022-04-18] MEDS: IPRATROPIUM/ALBUTEROL 0.5-3(2.5)MG/3ML NEB HHN SCH ×6 (00:55→20:54)
[2022-04-18] MEDS: HYDROMORPHONE HCL/PF 2MG/ML CPJ IV PRN ×5 (03:05→20:44)
[2022-04-18 04:00] VITALS: BP 105/60
[2022-04-18] MEDS: VANCOMYCIN 1000MG/20ML ORAL SOLN PO SCH ×3 (05:05→17:01)
[2022-04-18] MEDS: NYSTATIN 100,000 UNITS/ML 5ML UDC SSW SCH ×3 (05:05→17:01)
[2022-04-18] MEDS: HYDROCODONE/ACETAMINOPHEN 10/325MG TABLET PO PRN ×2 (05:06→14:27)
[2022-04-18] MEDS: LEVOTHYROXINE SODIUM 100MCG TABLET PO SCH (06:20)
[2022-04-18 07:57] LABS: HEMATOCRIT. 26.4 % (42.0-52.0); HEMOGLOBIN. 8.3 g/dL (14.0-18.0); MEAN CORPUSCULAR HEMOGLOBIN 25.9 pg (28.0-32.0); MEAN CORPUSCULAR VOLUME 82.9 fL (80.0-94.0); MEAN PLATELET VOLUME 10.4 fl (7.4-10.4); PLATELET 72 x1000/uL (130-400); RED BLOOD CELL COUNT 3.18 mill/uL (4.7-6.1); RED CELL DISTRIBUTION WIDTH 19.5 % (11.6-14.6)
[2022-04-18 08:00] VITALS: BP 92/54
[2022-04-18] MEDS: MIDODRINE HCL 2.5MG TABLET PO SCH ×3 (08:11→15:56)
[2022-04-18] MEDS: MAGNESIUM OXIDE 400MG TABLET PO SCH (08:12)
[2022-04-18] MEDS: LEVETIRACETAM 500MG TABLET PO SCH ×2 (08:12→20:44)
[2022-04-18] MEDS: AZITHROMYCIN 500 MG TABLET PO SCH (08:12)
[2022-04-18] MEDS: DOCUSATE SODIUM 100MG CAPSULE PO SCH ×2 (08:13→15:56)
[2022-04-18 09:12] LABS: PHOSPHORUS 6.7 mg/dL (2.5-4.9)
[2022-04-18] MEDS: OXYCODONE HCL 5MG TABLET PO PRN (10:30)
[2022-04-18 11:36] LABS: CREATINE KINASE 239 IU/L (39-308)
[2022-04-18 12:00] VITALS: BP 102/61
[2022-04-18 13:02] LABS: PLATELET ESTIMATE DECREASED
[2022-04-18] MEDS: DAPTOMYCIN 500 MG in SODIUM CHLORIDE 0.9% 50 ML IV SCH (14:16)
[2022-04-18] MEDS: MEROPENEM 1,000 MG in SODIUM CHLORIDE 0.9% 100 ML IV SCH (15:55)
[2022-04-18 16:00] VITALS: BP 103/60
[2022-04-18] MEDS: COLISTIMETHATE SODIUM 150MG/VIAL INH SCH (17:01)
[2022-04-18 20:00] VITALS: BP 100/59
[2022-04-19] VITALS: BP 97/64
[2022-04-19] MEDS: NYSTATIN 100,000 UNITS/ML 5ML UDC SSW SCH ×5 (00:23→23:02)
[2022-04-19] MEDS: HYDROMORPHONE HCL/PF 2MG/ML CPJ IV PRN ×6 (01:23→22:48)
[2022-04-19] MEDS: IPRATROPIUM/ALBUTEROL 0.5-3(2.5)MG/3ML NEB HHN SCH ×5 (02:31→21:37)
[2022-04-19 04:00] VITALS: BP 106/68
[2022-04-19] MEDS: HYDROCODONE/ACETAMINOPHEN 10/325MG TABLET PO PRN (04:52)
[2022-04-19] MEDS: LEVOTHYROXINE SODIUM 100MCG TABLET PO SCH (06:13)
[2022-04-19 07:25] LABS: HEMATOCRIT. 28.5 % (42.0-52.0); HEMOGLOBIN. 8.8 g/dL (14.0-18.0); MEAN CORPUSCULAR HEMOGLOBIN 25.6 pg (28.0-32.0); MEAN CORPUSCULAR VOLUME 83.1 fL (80.0-94.0); MEAN PLATELET VOLUME 10.4 fl (7.4-10.4); PLATELET 81 x1000/uL (130-400); RED BLOOD CELL COUNT 3.43 mill/uL (4.7-6.1); RED CELL DISTRIBUTION WIDTH 19.9 % (11.6-14.6)
[2022-04-19 08:00] VITALS: BP 102/64
[2022-04-19] MEDS: MAGNESIUM OXIDE 400MG TABLET PO SCH (08:58)
[2022-04-19] MEDS: DOCUSATE SODIUM 100MG CAPSULE PO SCH ×2 (08:58→16:54)
[2022-04-19] MEDS: LEVETIRACETAM 500MG TABLET PO SCH ×2 (08:58→20:48)
[2022-04-19] MEDS: AZITHROMYCIN 500 MG TABLET PO SCH (08:58)
[2022-04-19] MEDS: MIDODRINE HCL 2.5MG TABLET PO SCH ×3 (08:59→16:53)
[2022-04-19 09:00] LABS: PHOSPHORUS 6.5 mg/dL (2.5-4.9)
[2022-04-19] MEDS: ONDANSETRON HCL 4MG/2ML INJ IV PRN ×2 (09:05→16:12)
[2022-04-19 12:00] VITALS: BP 102/58
[2022-04-19 12:10] LABS: PLATELET ESTIMATE DECREASED
[2022-04-19 16:00] VITALS: BP 103/67
[2022-04-19] MEDS: OXYCODONE HCL 5MG TABLET PO PRN (16:53)
[2022-04-19] MEDS: MEROPENEM 1,000 MG in SODIUM CHLORIDE 0.9% 100 ML IV SCH (16:54)
[2022-04-19] MEDS: SEVELAMER CARBONATE 800 MG TABLET PO SCH ×2 (17:40→18:26)
[2022-04-19] MEDS ORDERED: MEGESTROL ACETATE 20MG TABLET PO SCH (18:00)
[2022-04-19 20:00] VITALS: BP 106/65
[2022-04-19] MEDS: MEGESTROL ACETATE 40MG TABLET PO SCH (20:48)
[2022-04-20] VITALS: BP 102/63
[2022-04-20] MEDS: HYDROCODONE/ACETAMINOPHEN 10/325MG TABLET PO PRN ×2 (01:19→18:52)
[2022-04-20] MEDS: IPRATROPIUM/ALBUTEROL 0.5-3(2.5)MG/3ML NEB HHN SCH ×4 (01:27→21:29)
[2022-04-20 04:00] VITALS: BP 105/64
[2022-04-20] MEDS: OXYCODONE HCL 5MG TABLET PO PRN (04:02)
[2022-04-20] MEDS: HYDROMORPHONE HCL/PF 2MG/ML CPJ IV PRN ×5 (04:06→21:25)
[2022-04-20] MEDS: NYSTATIN 100,000 UNITS/ML 5ML UDC SSW SCH ×3 (06:58→18:23)
[2022-04-20] MEDS: LEVOTHYROXINE SODIUM 100MCG TABLET PO SCH (06:59)
[2022-04-20 07:24] LABS: HEMATOCRIT. 27.1 % (42.0-52.0); HEMOGLOBIN. 8.5 g/dL (14.0-18.0); MEAN CORPUSCULAR HEMOGLOBIN 26.2 pg (28.0-32.0); MEAN CORPUSCULAR VOLUME 83.2 fL (80.0-94.0); MEAN PLATELET VOLUME 10.2 fl (7.4-10.4); PLATELET 67 x1000/uL (130-400); RED BLOOD CELL COUNT 3.26 mill/uL (4.7-6.1); RED CELL DISTRIBUTION WIDTH 19.9 % (11.6-14.6)
[2022-04-20 08:00] VITALS: BP 112/73
[2022-04-20] MEDS: DOCUSATE SODIUM 100MG CAPSULE PO SCH ×2 (09:00→17:00)
[2022-04-20] MEDS: LEVETIRACETAM 500MG TABLET PO SCH ×2 (09:13→21:24)
[2022-04-20] MEDS: MEGESTROL ACETATE 40MG TABLET PO SCH ×4 (09:13→21:24)
[2022-04-20] MEDS: SEVELAMER CARBONATE 800 MG TABLET PO SCH ×3 (09:13→18:23)
[2022-04-20] MEDS: MIDODRINE HCL 2.5MG TABLET PO SCH ×3 (09:13→18:23)
[2022-04-20] MEDS: MAGNESIUM OXIDE 400MG TABLET PO SCH (09:14)
[2022-04-20] MEDS: FOLIC ACID/VITAMIN B COMP W-C TABLET PO SCH (09:14)
[2022-04-20] MEDS: AZITHROMYCIN 500 MG TABLET PO SCH (09:14)
[2022-04-20 10:33] LABS: NUCLEATED RED BLOOD CELLS 1 /100 WBC; PLATELET ESTIMATE DECREASED
[2022-04-20 12:00] VITALS: BP 104/62
[2022-04-20] MEDS: DAPTOMYCIN 500 MG in SODIUM CHLORIDE 0.9% 50 ML IV SCH (13:26)
[2022-04-20] MEDS ORDERED: SODIUM POLYSTYRENE SULFONATE 15 G/60 ML BOT PO NR (15:15)
[2022-04-20] MEDS: MEROPENEM 1,000 MG in SODIUM CHLORIDE 0.9% 100 ML IV SCH (18:46)
[2022-04-21] VITALS: BP 106/58
[2022-04-21] MEDS: HYDROMORPHONE HCL/PF 2MG/ML CPJ IV PRN ×5 (01:23→21:01)
[2022-04-21] MEDS: HYDROCODONE/ACETAMINOPHEN 10/325MG TABLET PO PRN ×2 (02:58→23:08)
[2022-04-21 04:00] VITALS: BP 94/54
[2022-04-21] MEDS: NYSTATIN 100,000 UNITS/ML 5ML UDC SSW SCH ×4 (06:00→17:11)
[2022-04-21 06:31] LABS: HEMATOCRIT. 24.5 % (42.0-52.0); HEMOGLOBIN. 7.7 g/dL (14.0-18.0); MEAN CORPUSCULAR HEMOGLOBIN 26.5 pg (28.0-32.0); MEAN CORPUSCULAR VOLUME 84.6 fL (80.0-94.0); MEAN PLATELET VOLUME 10.3 fl (7.4-10.4); PLATELET 75 x1000/uL (130-400); RED BLOOD CELL COUNT 2.89 mill/uL (4.7-6.1); RED CELL DISTRIBUTION WIDTH 20.4 % (11.6-14.6)
[2022-04-21] MEDS: LEVOTHYROXINE SODIUM 100MCG TABLET PO SCH (06:46)
[2022-04-21 06:55] LABS: PHOSPHORUS 6.6 mg/dL (2.5-4.9)
[2022-04-21 08:00] VITALS: BP 95/60
[2022-04-21] MEDS: IPRATROPIUM/ALBUTEROL 0.5-3(2.5)MG/3ML NEB HHN SCH ×2 (08:02→12:00)
[2022-04-21] MEDS: FOLIC ACID/VITAMIN B COMP W-C TABLET PO SCH (08:53)
[2022-04-21] MEDS: SEVELAMER CARBONATE 800 MG TABLET PO SCH ×3 (08:53→17:08)
[2022-04-21] MEDS: MAGNESIUM OXIDE 400MG TABLET PO SCH (08:53)
[2022-04-21] MEDS: LEVETIRACETAM 500MG TABLET PO SCH ×2 (08:54→20:59)
[2022-04-21] MEDS: MEGESTROL ACETATE 40MG TABLET PO SCH ×4 (08:54→20:59)
[2022-04-21] MEDS: MIDODRINE HCL 2.5MG TABLET PO SCH ×3 (08:54→17:09)
[2022-04-21] MEDS: AZITHROMYCIN 500 MG TABLET PO SCH (08:54)
[2022-04-21] MEDS: DOCUSATE SODIUM 100MG CAPSULE PO SCH (08:58)
[2022-04-21 12:00] VITALS: BP 100/56
[2022-04-21 16:00] VITALS: BP 104/61
[2022-04-21 16:59] LABS: HEMATOCRIT. 25.8 % (42.0-52.0); MEAN CORPUSCULAR HEMOGLOBIN 26.2 pg (28.0-32.0); MEAN CORPUSCULAR VOLUME 84.1 fL (80.0-94.0); PLATELET 76 x1000/uL (130-400); RED BLOOD CELL COUNT 3.06 mill/uL (4.7-6.1); RED CELL DISTRIBUTION WIDTH 19.7 % (11.6-14.6)
[2022-04-21] MEDS: MEROPENEM 1,000 MG in SODIUM CHLORIDE 0.9% 100 ML IV SCH (17:07)
[2022-04-21 17:40] LABS: PLATELET ESTIMATE DECREASED
[2022-04-21 20:00] VITALS: BP 93/58
[2022-04-21] MEDS ORDERED: NALOXONE HCL 0.4MG/ML VIAL IV PRN (22:00)
[2022-04-21 22:39] LABS: PLATELET ESTIMATE DECREASED
[2022-04-21] MEDS: ONDANSETRON HCL 4MG/2ML INJ IV PRN (23:08)
[2022-04-22] VITALS: BP 105/60
[2022-04-22] MEDS: NYSTATIN 100,000 UNITS/ML 5ML UDC SSW SCH ×4 (00:14→17:15)
[2022-04-22] MEDS: HYDROMORPHONE HCL/PF 2MG/ML CPJ IV PRN ×5 (00:16→22:05)
[2022-04-22 04:00] VITALS: BP 105/56
[2022-04-22 05:30] LABS: HEMOGLOBIN. 7.8 g/dL (14.0-18.0); MEAN CORPUSCULAR VOLUME 83.6 fL (80.0-94.0); MEAN PLATELET VOLUME 9.7 fl (7.4-10.4); PLATELET 81 x1000/uL (130-400); RED BLOOD CELL COUNT 2.99 mill/uL (4.7-6.1); RED CELL DISTRIBUTION WIDTH 19.6 % (11.6-14.6)
[2022-04-22 06:12] LABS: PHOSPHORUS 7.5 mg/dL (2.5-4.9)
[2022-04-22] MEDS: LEVOTHYROXINE SODIUM 100MCG TABLET PO SCH (06:26)
[2022-04-22] MEDS: ONDANSETRON HCL 4MG/2ML INJ IV PRN ×2 (06:26→20:29)
[2022-04-22] MEDS: HYDROCODONE/ACETAMINOPHEN 10/325MG TABLET PO PRN ×2 (06:27→20:38)
[2022-04-22] MEDS ORDERED: SODIUM BICARBONATE 4% (2.4MEQ) 5ML VIAL IV ONE (07:54)
[2022-04-22] MEDS ORDERED: LIDOCAINE HCL/PF 1% 10 MG/ML 5ML VIAL ONE (07:55)
[2022-04-22 08:00] VITALS: BP 104/47
[2022-04-22] MEDS: SEVELAMER CARBONATE 800 MG TABLET PO SCH ×4 (10:03→17:03)
[2022-04-22] MEDS: MAGNESIUM OXIDE 400MG TABLET PO SCH (10:04)
[2022-04-22] MEDS: MEGESTROL ACETATE 40MG TABLET PO SCH ×4 (10:04→20:37)
[2022-04-22] MEDS: LEVETIRACETAM 500MG TABLET PO SCH ×2 (10:04→20:47)
[2022-04-22] MEDS: FOLIC ACID/VITAMIN B COMP W-C TABLET PO SCH (10:06)
[2022-04-22] MEDS: MIDODRINE HCL 2.5MG TABLET PO SCH ×3 (10:06→17:01)
[2022-04-22 12:00] VITALS: BP_SYST 140; BP_SYST 90; BP_DIAS 119; BP_DIAS 56
[2022-04-22] MEDS: DAPTOMYCIN 400 MG in SODIUM CHLORIDE 0.9% 50 ML IV SCH (14:04)
[2022-04-22 14:46] LABS: PLATELET ESTIMATE DECREASED
[2022-04-22 15:58] VITALS: BP 92/52
[2022-04-22] MEDS: MEROPENEM 1,000 MG in SODIUM CHLORIDE 0.9% 100 ML IV SCH (17:01)
[2022-04-22 17:12] LABS: HEPATITIS B SURFACE ANTIGEN NEGATIVE
[2022-04-22 20:00] VITALS: BP 91/57
[2022-04-23] VITALS (7 sets, daily range): BP systolic 86–105; BP diastolic 49–63
[2022-04-23] MEDS: NYSTATIN 100,000 UNITS/ML 5ML UDC SSW SCH ×4 (00:01→17:27)
[2022-04-23] MEDS: ONDANSETRON HCL 4MG/2ML INJ IV PRN ×3 (02:36→19:37)
[2022-04-23] MEDS: HYDROMORPHONE HCL/PF 2MG/ML CPJ IV PRN ×6 (02:36→23:43)
[2022-04-23] MEDS: HYDROCODONE/ACETAMINOPHEN 10/325MG TABLET PO PRN ×2 (04:41→13:07)
[2022-04-23] MEDS: LEVOTHYROXINE SODIUM 100MCG TABLET PO SCH (06:10)
[2022-04-23 07:05] LABS: HEMOGLOBIN. 7.8 g/dL (14.0-18.0); MEAN CORPUSCULAR HEMOGLOBIN 25.9 pg (28.0-32.0); MEAN CORPUSCULAR VOLUME 83.1 fL (80.0-94.0); PLATELET 81 x1000/uL (130-400); RED BLOOD CELL COUNT 3.01 mill/uL (4.7-6.1); RED CELL DISTRIBUTION WIDTH 19.2 % (11.6-14.6)
[2022-04-23] MEDS: MIDODRINE HCL 2.5MG TABLET PO SCH ×3 (07:55→17:27)
[2022-04-23 08:01] LABS: PHOSPHORUS 8.2 mg/dL (2.5-4.9)
[2022-04-23 08:59] LABS: NUCLEATED RED BLOOD CELLS 2 /100 WBC
[2022-04-23 09:00] LABS: PLATELET ESTIMATE DECREASED
[2022-04-23] MEDS: MEGESTROL ACETATE 40MG TABLET PO SCH ×4 (09:00→20:07)
[2022-04-23] MEDS: SEVELAMER CARBONATE 800 MG TABLET PO SCH ×3 (10:40→17:28)
[2022-04-23] MEDS: FOLIC ACID/VITAMIN B COMP W-C TABLET PO SCH (10:41)
[2022-04-23] MEDS: MAGNESIUM OXIDE 400MG TABLET PO SCH (10:41)
[2022-04-23] MEDS: LEVETIRACETAM 500MG TABLET PO SCH ×2 (10:41→20:06)
[2022-04-23] MEDS: MEROPENEM 1,000 MG in SODIUM CHLORIDE 0.9% 100 ML IV SCH (17:27)
[2022-04-23] MEDS: OXYCODONE HCL 5MG TABLET PO PRN (18:34)
[2022-04-23] MEDS: LORAZEPAM 1MG TABLET PO PRN (22:40)
[2022-04-24 03:47] VITALS: BP 95/60
[2022-04-24] MEDS: ONDANSETRON HCL 4MG/2ML INJ IV PRN (03:48)
[2022-04-24] MEDS: HYDROMORPHONE HCL/PF 2MG/ML CPJ IV PRN ×4 (03:53→20:24)
[2022-04-24] MEDS: LORAZEPAM 1MG TABLET PO PRN (06:21)
[2022-04-24] MEDS: LEVOTHYROXINE SODIUM 100MCG TABLET PO SCH (06:21)
[2022-04-24 06:48] LABS: HEMATOCRIT. 26.5 % (42.0-52.0); HEMOGLOBIN. 8.3 g/dL (14.0-18.0); MEAN CORPUSCULAR HEMOGLOBIN 26.3 pg (28.0-32.0); MEAN PLATELET VOLUME 10.6 fl (7.4-10.4); PLATELET 90 x1000/uL (130-400); RED BLOOD CELL COUNT 3.15 mill/uL (4.7-6.1); RED CELL DISTRIBUTION WIDTH 19.9 % (11.6-14.6)
[2022-04-24 07:13] LABS: PHOSPHORUS 5.8 mg/dL (2.5-4.9)
[2022-04-24 08:02] VITALS: BP 102/61
[2022-04-24] MEDS: MAGNESIUM OXIDE 400MG TABLET PO SCH (08:04)
[2022-04-24] MEDS: MIDODRINE HCL 2.5MG TABLET PO SCH ×3 (08:04→17:42)
[2022-04-24] MEDS: FOLIC ACID/VITAMIN B COMP W-C TABLET PO SCH (08:04)
[2022-04-24] MEDS: LEVETIRACETAM 500MG TABLET PO SCH ×2 (08:04→21:59)
[2022-04-24] MEDS: SEVELAMER CARBONATE 800 MG TABLET PO SCH ×3 (08:05→17:06)
[2022-04-24] MEDS: MEGESTROL ACETATE 40MG TABLET PO SCH ×4 (08:05→21:59)
[2022-04-24 10:09] LABS: NUCLEATED RED BLOOD CELLS 3 /100 WBC
[2022-04-24 10:11] LABS: PLATELET ESTIMATE DECREASED
[2022-04-24 12:00] VITALS: BP 91/54
[2022-04-24] MEDS: DAPTOMYCIN 400 MG in SODIUM CHLORIDE 0.9% 50 ML IV SCH (13:47)
[2022-04-24 16:00] VITALS: BP 99/57
[2022-04-24] MEDS: NYSTATIN 100,000 UNITS/ML 5ML UDC SSW SCH (17:42)
[2022-04-24] MEDS: MEROPENEM 1,000 MG in SODIUM CHLORIDE 0.9% 100 ML IV SCH (17:42)
[2022-04-24] MEDS: FLUCONAZOLE 100MG TABLET PO SCH (17:43)
[2022-04-24 20:00] VITALS: BP 89/52
[2022-04-24] MEDS: VANCOMYCIN 1000MG/20ML ORAL SOLN PO SCH (21:59)
[2022-04-24 22:26] LABS: BG BASE EXCESS -0.1 mmol/L (-2.0-2.0); BG CARBOXYHEMOGLOBIN 0.3 % (0.5-1.5); BG DEOXYHEMOGLOBIN 5.9 % (0.0-5.0); BG FRACTION INSPIRED OXYGEN 21; BG HCO3 ACT 23.5 mmol/L (22.0-26.0); BG METHEMOGLOBIN 0.3 % (0.0-1.5); BG OXYGEN SATURATION 94.1 % (92.0-98.5); BG OXYHEMOGLOBIN 93.5 % (94.0-97.0); BG PCO2 34.1 mmHg (35.0-45.0); BG PH 7.457 (7.350-7.450); BG PO2 76.3 mmHg (75.0-100.0); BG SAMPLE SITE LEFT RADIAL; BG TOTAL HEMOGLOBIN 8.3 g/dL (12.0-18.0); BG VENT MODE ROOM AIR
[2022-04-24] MEDS: OXYCODONE HCL 5MG TABLET PO PRN (22:26)
[2022-04-25] VITALS (13 sets, daily range): BP systolic 62–133; BP diastolic 40–82
[2022-04-25] MEDS: NYSTATIN 100,000 UNITS/ML 5ML UDC SSW SCH ×4 (00:26→17:58)
[2022-04-25] MEDS: HYDROMORPHONE HCL/PF 2MG/ML CPJ IV PRN ×5 (00:27→17:58)
[2022-04-25] MEDS: VANCOMYCIN 1000MG/20ML ORAL SOLN PO SCH ×4 (00:27→17:58)
[2022-04-25] MEDS: OXYCODONE HCL 5MG TABLET PO PRN ×2 (03:15→06:29)
[2022-04-25] MEDS: LEVOTHYROXINE SODIUM 100MCG TABLET PO SCH (06:20)
[2022-04-25 08:11] LABS: HEMATOCRIT. 24.1 % (42.0-52.0); HEMOGLOBIN. 7.5 g/dL (14.0-18.0); MEAN CORPUSCULAR HEMOGLOBIN 26.5 pg (28.0-32.0); MEAN CORPUSCULAR VOLUME 84.9 fL (80.0-94.0); PLATELET 84 x1000/uL (130-400); RED BLOOD CELL COUNT 2.84 mill/uL (4.7-6.1); RED CELL DISTRIBUTION WIDTH 19.9 % (11.6-14.6)
[2022-04-25] MEDS: MAGNESIUM OXIDE 400MG TABLET PO SCH (08:31)
[2022-04-25] MEDS: SEVELAMER CARBONATE 800 MG TABLET PO SCH ×3 (08:31→16:39)
[2022-04-25] MEDS: LEVETIRACETAM 500MG TABLET PO SCH ×3 (08:31→21:00)
[2022-04-25] MEDS: FOLIC ACID/VITAMIN B COMP W-C TABLET PO SCH (08:31)
[2022-04-25] MEDS: FLUCONAZOLE 100MG TABLET PO SCH (08:31)
[2022-04-25] MEDS: MIDODRINE HCL 2.5MG TABLET PO SCH ×2 (08:32→12:48)
[2022-04-25] MEDS: MEGESTROL ACETATE 40MG TABLET PO SCH ×5 (08:32→21:00)
[2022-04-25] MEDS: ONDANSETRON HCL 4MG/2ML INJ IV PRN ×2 (11:30→20:33)
[2022-04-25] MEDS: LORAZEPAM 1MG TABLET PO PRN (11:30)
[2022-04-25 11:32] LABS: NUCLEATED RED BLOOD CELLS 3 /100 WBC
[2022-04-25 11:34] LABS: PLATELET ESTIMATE DECREASED
[2022-04-25] MEDS: MEROPENEM 1,000 MG in SODIUM CHLORIDE 0.9% 100 ML IV SCH (16:38)
[2022-04-25] MEDS ORDERED: MIDODRINE HCL 2.5MG TABLET PO SCH (17:00)
[2022-04-25] MEDS ORDERED: EPINEPHRINE 5 MG in SODIUM CHLORIDE 0.9% 245 ML IV PRN (21:45)
[2022-04-25] MEDS ORDERED: NOREPINEPHRINE 32 MG in DEXT 5% WATER 218 ML IV PRN (22:45)
[2022-04-25] MEDS ORDERED: ALBUMIN HUMAN 25GM/500ML (5%) IV ONE (22:45)
[2022-04-25] MEDS: ALBUMIN HUMAN 25GM/500ML (5%) IV NR (23:27)
[2022-04-25] MEDS ORDERED: DEXTROSE 50% WATER 50ML SYRINGE IV ONE (23:57)
[2022-04-26] VITALS (16 sets, daily range): BP systolic 58–106; BP diastolic 32–70
[2022-04-26] MEDS: VANCOMYCIN 1000MG/20ML ORAL SOLN PO SCH
[2022-04-26] MEDS: NYSTATIN 100,000 UNITS/ML 5ML UDC SSW SCH
[2022-04-26] MEDS ORDERED: SODIUM POLYSTYRENE SULFONATE 15 G/60 ML BOT PO NR (00:15)
[2022-04-26] MEDS ORDERED: VASOPRESSIN 20 UNIT in SODIUM CHLORIDE 0.9% 99 ML IV PRN (00:30)
[2022-04-26 00:48] LABS: BG BASE EXCESS -16.4 mmol/L (-2.0-2.0); BG CARBOXYHEMOGLOBIN 0.1 % (0.5-1.5); BG DEOXYHEMOGLOBIN 30.3 % (0.0-5.0); BG FRACTION INSPIRED OXYGEN 100; BG HCO3 ACT 14.8 mmol/L (22.0-26.0); BG METHEMOGLOBIN 2.9 % (0.0-1.5); BG OXYGEN SATURATION 68.8 % (92.0-98.5); BG OXYHEMOGLOBIN 66.7 % (94.0-97.0); BG PCO2 69.4 mmHg (35.0-45.0); BG PH 6.947 (7.350-7.450); BG PO2 63.6 mmHg (75.0-100.0); BG SAMPLE SITE RIGHT RADIAL; BG TOTAL HEMOGLOBIN 7.4 g/dL (12.0-18.0); BG TOTAL RESPIRATORY RATE 16 b/min; BG VENT MODE VENT - AC
[2022-04-26 00:59] LABS: BASOPHILS % 0.8 % (0.0-2.0); EOSINOPHILS % 0.3 % (0.0-5.0); HEMATOCRIT. 22.5 % (42.0-52.0); LYMPHOCYTES % 9.5 % (20.0-50.0); MEAN CORPUSCULAR HEMOGLOBIN 26.2 pg (28.0-32.0); MEAN CORPUSCULAR VOLUME 95.1 fL (80.0-94.0); MEAN PLATELET VOLUME 9.5 fl (7.4-10.4); MONOCYTES % 3.2 % (2.0-8.0); NEUTROPHILS % 86.2 % (40.0-76.0); PLATELET 67 x1000/uL (130-400); RED BLOOD CELL COUNT 2.37 mill/uL (4.7-6.1); RED CELL DISTRIBUTION WIDTH 21.2 % (11.6-14.6)
[2022-04-26 01:24] LABS: HEMOGLOBIN. 6.2 g/dL (14.0-18.0)
[2022-04-26] MEDS: ALBUMIN HUMAN 25GM/500ML (5%) IV NR (03:10)
[2022-04-26] MEDS ORDERED: PIPERACILLIN/TAZOBACTAM 3.375GM/50ML PREMIX IV ONE (03:30)
[2022-04-26] MEDS ORDERED: SODIUM BICARBONATE 8.4% 1 MEQ/ML 50ML SYR IV NR (03:30)
[2022-04-26] MEDS ORDERED: PIPERACILLIN/TAZOBACTAM 3.375G in DEXT 5% WATER 50ML IV NR (04:00)
[2022-04-26 05:57] LABS: MEAN CORPUSCULAR HEMOGLOBIN 26.5 pg (28.0-32.0); MEAN CORPUSCULAR VOLUME 96.1 fL (80.0-94.0); RED BLOOD CELL COUNT 2.06 mill/uL (4.7-6.1); RED CELL DISTRIBUTION WIDTH 20.6 % (11.6-14.6)
[2022-04-26 06:29] LABS: CHLORIDE 106 mEq/L (98-107)
[2022-04-26 06:31] LABS: HEMATOCRIT. 19.8 % (42.0-52.0); HEMOGLOBIN. 5.5 g/dL (14.0-18.0)
[2022-04-26 06:58] LABS: MEAN PLATELET VOLUME 8.5 fl (7.4-10.4); PLATELET 51 x1000/uL (130-400)
[2022-04-26 20:53] LABS: NUCLEATED RED BLOOD CELLS 16 /100 WBC; PLATELET ESTIMATE MARKEDLY DECREASED
[2022-04-28 09:07] LABS: DIRECTOR REVIEW Comment: (.); FISH RESULTS Comment: (.)
== END 2022-04-26 09:00 | DRG 710 ==
LOC: ER 14:09 → 6WST 15:41 → ENRESERV 21:04 → 5EST 03-23 12:15 → CVICU 03-23 19:00 → 5EST 03-26 10:10 → 3WST 03-30 16:12 → 8WST 04-07 05:30 → MICUNO 04-25 22:28
PROVIDERS: ADMIT Internal Medicine; ATTEND Internal Medicine
PROC: 02BN0ZX Excision of Pericardium, Open Approach, Diagnostic (ICD-10-PCS; principal; 2022-03-23)
PROC: 0W9D00Z Drainage of Pericardial Cavity with Drainage Device, Open Approach (ICD-10-PCS; 2022-03-23)
PROC: B24BZZ4 Ultrasonography of Heart with Aorta, Transesophageal (ICD-10-PCS; 2022-03-23)
PROC: 30233N1 Transfusion of Nonautologous Red Blood Cells into Peripheral Vein, Percutaneous Approach (ICD-10-PCS; 2022-03-26)
PROC: 02HV33Z Insertion of Infusion Device into Superior Vena Cava, Percutaneous Approach (ICD-10-PCS; 2022-03-28)
PROC: B5181ZA Fluoroscopy of Superior Vena Cava using Low Osmolar Contrast, Guidance (ICD-10-PCS; 2022-03-28)
PROC: 0W9G3ZZ Drainage of Peritoneal Cavity, Percutaneous Approach (ICD-10-PCS; 2022-04-15)
PROC: 5A1D70Z Performance of Urinary Filtration, Intermittent, Less than 6 Hours Per Day (ICD-10-PCS; 2022-04-17)
PROC: 02HV33Z Insertion of Infusion Device into Superior Vena Cava, Percutaneous Approach (ICD-10-PCS; 2022-04-17)
PROC: B548ZZA Ultrasonography of Superior Vena Cava, Guidance (ICD-10-PCS; 2022-04-17)
PROC: 5A1D70Z Performance of Urinary Filtration, Intermittent, Less than 6 Hours Per Day (ICD-10-PCS; 2022-04-19)
PROC: 5A1D70Z Performance of Urinary Filtration, Intermittent, Less than 6 Hours Per Day (ICD-10-PCS; 2022-04-21)
PROC: 0W9G3ZZ Drainage of Peritoneal Cavity, Percutaneous Approach (ICD-10-PCS; 2022-04-22)
PROC: 5A1D70Z Performance of Urinary Filtration, Intermittent, Less than 6 Hours Per Day (ICD-10-PCS; 2022-04-23)
PROC: 5A1935Z Respiratory Ventilation, Less than 24 Consecutive Hours (ICD-10-PCS; 2022-04-25)
PROC: 5A1D70Z Performance of Urinary Filtration, Intermittent, Less than 6 Hours Per Day (ICD-10-PCS; 2022-04-25)
PROC: 0BH17EZ Insertion of Endotracheal Airway into Trachea, Via Natural or Artificial Opening (ICD-10-PCS; 2022-04-25)
DX: A41.9 Sepsis, unspecified organism (principal); I31.4 Cardiac tamponade; D65 Disseminated intravascular coagulation [defibrination syndrome]; I46.9 Cardiac arrest, cause unspecified; E43 Unspecified severe protein-calorie malnutrition; B37.0 Candidal stomatitis; J18.9 Pneumonia, unspecified organism; K65.8 Other peritonitis; C78.02 Secondary malignant neoplasm of left lung; C79.51 Secondary malignant neoplasm of bone; N17.9 Acute kidney failure, unspecified; N18.9 Chronic kidney disease, unspecified; R65.20 Severe sepsis without septic shock; E86.0 Dehydration; Z68.1 Body mass index [BMI] 19.9 or less, adult; C78.7 Secondary malignant neoplasm of liver and intrahepatic bile duct; C11.9 Malignant neoplasm of nasopharynx, unspecified; D64.9 Anemia, unspecified; E03.9 Hypothyroidism, unspecified; E87.2 Acidosis; E87.5 Hyperkalemia; G40.909 Epilepsy, unspecified, not intractable, without status epilepticus; G62.9 Polyneuropathy, unspecified; G89.3 Neoplasm related pain (acute) (chronic); I31.3 Pericardial effusion (noninflammatory); Z20.822 Contact with and (suspected) exposure to COVID-19; B95.2 Enterococcus as the cause of diseases classified elsewhere; K74.60 Unspecified cirrhosis of liver; K76.6 Portal hypertension; N18.6 End stage renal disease; I12.0 Hypertensive chronic kidney disease with stage 5 chronic kidney disease or end stage renal disease; R18.8 Other ascites; E83.42 Hypomagnesemia; R63.0 Anorexia; E88.09 Other disorders of plasma-protein metabolism, not elsewhere classified; Z79.899 Other long term (current) drug therapy; Z82.49 Family history of ischemic heart disease and other diseases of the circulatory system; Z90.2 Acquired absence of lung [part of]; Z92.21 Personal history of antineoplastic chemotherapy; Z92.3 Personal history of irradiation; Z99.2 Dependence on renal dialysis
CPT/HCPCS: 36415; 36556; 36573; 36600; 49083; 71045; 71250; 74018; 74176; 76700; 76705; 76937; 77001; 78580; 80048; 80053; 80202; 81003; 82085; 82164; 82270; 82375; 82533; 82550; 82728; 82805; 82962; 83520; 83540; 83550; 83605; 83615; 83735; 83880; 84100; 84132; 84145; 84439; 84443; 84480; 84484; 85014; 85018; 85025; 85044; 85049; 85379; 85651; 86022; 86141; 86147; 86160; 86200; 86225; 86235; 86256; 86332; 86376; 86431; 86705; 86709; 86803; 86850; 86880; 86900; 86920; 87015; 87045; 87070; 87075; 87077; 87102; 87116; 87186; 87340; 87426; 87427; 87449; 88305; 89055; 92610; 92950; 93005; 93306; 93970; 94002; 94640; 97110; 97116; 97161; 97530; 99285; C1725; C1752; C9113; C9803; J0360; J0610; J0690; J0692; J0770; J0878; J0885; J1100; J1170; J1265; J1650; J1815; J1940; J1953; J2020; J2185; J2270; J2405; J2543; J3370; J3475; J3490; J7030; J7042; J7050; J7060; J7070; J7512; P9016; P9041